=== PATIENT | male | born 1990 | race Caucasian/White ===

== ENCOUNTER → 2016-10-14 | Outpatient (CLI) | payer BC | LOC: BMCIMAGING 12:52 | PROVIDERS: ATTEND Family Medicine | DX: S62.326G Displaced fracture of shaft of fifth metacarpal bone, right hand, subsequent encounter for fracture with delayed healing (principal) ==

== ENCOUNTER 2017-08-23 20:59 | Inpatient (IN) | payer OTHER ==
[2017-08-23] MEDS ORDERED: NS 1,000 ML IV ONE (21:07)
[2017-08-23] MEDS ORDERED: ONDANSETRON 4 MG/2 ML VIAL IVP ONE (21:07)
--- NOTE | 2017-08-23 21:09 | EDPHY ---
H & P Time Seen by Provider: 08/23/17 21:08 HPI/ROS: HPI: This is a 26-year-old male who presents with Chief Complaint: Head injury Location: Head Quality: Injury Duration: Prior to arrival Signs and Symptoms: + LOC, + intoxicated, + bleeding, no radiation, no numbness , no weakness, no tingling, no incontinence, no decreased range of motion, no swelling, no pain Timing: Acute Severity: Moderate Context: Patient is brought in by EMS on limited trauma for head injury while intoxicated. Patient was at [employer] restaurant and [employer] when fellow patrons saw him lying supine next to the bar with obvious intoxication and decreased responsiveness. Bystanders were approximately 40 ft away and did not see what happened. Patient is alert and will answer questions but has slurred speech and admits to drinking "a lot and all day long." He reports that he has a mild posterior and left bahai headache with some posterior neck stiffness. Patient keeps asking what's around his neck and have to reassure him its the cervical collar he has in place. He does not know how he ended up on the ground or how he fell. He does not remember if he hit his head or not. He denies any abdominal pain/shortness of breath/chest pain/weakness. Right-hand dominant. EMS placed cervical collar on scene. Dr. Cortez was at bedside for entire history and physical. Patient does complain of some nausea. He admits he has not eaten today. Modifying Factors: None Comment: ROS: Limited due to intoxication MEDICAL/SURGICAL/SOCIAL HISTORY: Medical history: Anxiety. Surgical history: Denies Social history: Employed. CONSTITUTIONAL: Clearly intoxicated and smells of alcohol, adult white male, awake and alert, no obvious distress HEENT: 4 mm contusion noted over left bahai and normocephalic, PERRL, EOMI. no globe entrapment, no raccoon eyes. no Gastelum signs. Tympanic membranes clear. No tympanic membrane rupture. Nares patent; no septal hematoma. Oropharynx clear, no exudate and moist pink mucosa. No malocclusion. no dental trauma. Airway patent. No lymphadenopathy. NECK: In cervical collar; once removed; supple, no midline tenderness, flexion 45 degrees, extension 45 degrees, right and left lateral flexion 45 degrees. No meningismus. Cardiovascular: Normal S1/S2, regular rate, regular rhythm, without murmur rub or gallop. PULMONARY/CHEST: Symmetrical and nontender. no crepitus. Clear to auscultation bilaterally. Good air movement. No accessory muscle usage. ABDOMEN: Soft, protuberant, generalized tenderness, no ecchymosis, no rebound, no guarding, no peritoneal signs, no masses or organomegaly. No CVAT. PELVIC: no pain with rocking; bilateral hips flexion 125 degrees, extension 30 degrees, with no pain internal rotation and no pain external rotation. BACK: No midline tenderness, no paraspinous spasm, deep tendon reflexes 2/2, no pain with straight leg raise EXTREMITIES: 2/2 pulses, no deformities, no clubbing, no cyanosis or edema. NEUROLOGICAL: no focal neuro deficits. GCS 15. Able to move all 4 extremities upon command. Speech is slurred but understandable. SKIN: Warm and dry, no erythema. no rash. Good capillary refill. Source: Patient, Police, EMS Exam Limitations: No limitations - Medical/Surgical History Hx Asthma: Yes Hx Chronic Respiratory Disease: No Hx Diabetes: No Hx Cardiac Disease: No Hx Renal Disease: No Hx Cirrhosis: No Hx Alcoholism: Yes Hx HIV/AIDS: No Hx Splenectomy or Spleen Trauma: No Other PMH: anxiety - Social History Smoking Status: Current every day smoker Constitutional: Initial Vital Signs Temperature (C) 36.9 C 08/23/17 21:16 Heart Rate 96 08/23/17 21:16 Respiratory Rate 16 08/23/17 21:16 Blood Pressure 143/91 H 08/23/17 21:16 O2 Sat (%) 95 08/23/17 21:16 O2 Delivery Mode Nasal Cannula O2 (L/minute) 2 Allergies/Adverse Reactions: No Known Allergies Allergy (Unverified 02/19/17 17:03) Home Medications: Medication Instructions Recorded Albuterol [Proventil Inhaler HFA 1 - 2 puffs IH Q4H PRN 02/19/17 (*)] Citalopram Hydrobromide [celeXA 10 10 mg PO DAILY 02/19/17 MG] Medical Decision Making - Diagnostics Imaging Results: Imaging Impressions Cervical Spine CT 08/23/17 21:08 Impression: 1. No acute fracture or soft tissue swelling. 2. If the patient has persistent pain or neurologic deficits, consider cervical spine MRI. Findings discussed with Emergency Department physician lab assistant, Trupti Dukes at 08/23/2017 22:06. Lumbar Spine CT 08/23/17 21:28 Impression: 1. No acute lumbar spine fracture. 2. Ascites versus low-attenuation multiloculated mass in the abdomen. Findings discussed with Emergency Department physician lab assistantTrupti at 08/23/2017 22:06. Abdomen CT 08/23/17 22:04 Impression: 1. Large multiloculated thin-walled cystic mass in the left mid abdomen which may originate from the left kidney (as there is no normal left kidney and the abdomen). The findings are not pathognomonic. The differential diagnosis includes atypical forms of unilateral renal cystic disease, multilocular cystic nephroma, localized cystic renal disease, and multicystic dysplastic kidney. Multicystic dysplastic kidney is a pediatric diagnosis and usually undergo atrophy by this patient's age and the other above cystic diseases usually have some component of underlying normal-appearing renal parenchyma (of which this does not). Recommend urological consultation. 2. No acute solid organ or bowel injury. 3. No acute fracture. 4. Subacute anterior right fourth rib fracture. Findings discussed with Emergency Department physician lab assistant, Trupti Dukes at 08/23/2017 23:56. ED Course/Re-evaluation: Head CT scan cervical CT scan ordered based on Storey criteria. Given 1 L normal saline, IV Zofran 2000: ETOH 379; H&H elevated consistent with intoxication and dehydration. 2128: Patient now complaining of low back pain; able to move lower legs without any weakness. CT lumbar scan ordered and given IV morphine 4 mg 2205: Called by Dr. Beckham who advised head CT scan is negative for acute intracranial abnormality, CT cervical scan shows no signs of fracture, CT lumbar or scan does not show any acute fracture/dislocation but there is a mass that tumor like or ascites and radiology's requesting for CT abdomen and pelvis scan to be ordered. C-collar removed. 2210: Friend at bedside who is sober and witnessed what happened. Reports that he went to sit on a bar stool in missed and fell directly on the ground onto his buttocks. He then popped right back up and continue to walk and then hit the wall and slid down the wall and fell onto the floor. 2230: Reassessed patient who is moving around on the bed clearly intoxicated. Keeps having to be redirected. IV Haldol 5 mg given. 2355: Called by radiologist who advised that CT abdomen and pelvis scan shows a 30 cm x 23 cm left mid abdomen mass Large multiloculated thin-walled cystic mass in the left mid abdomen which may originate from the left kidney (as there is no normal left kidney and the abdomen). Subacute anterior right fourth rib fracture. 0000: ED decision to consult, Trauma/General Surgery, Dr. Miranda. Reassessed patient; generalized abdominal tenderness. Reports no difficulty with urination/ abdominal pain/nausea/vomiting over the years. Only complains of low back pain. IV Dilaudid given 0130: End of shift. Signed over to Dr. Mcdonald pending Dr. Miranda consult and final disposition. This patient was seen under the supervision of my secondary supervising physician. I evaluated care for this patient independently. Discussed this patient with Dr. Cortez who did see the patient. Differential Diagnosis: Head injury including but not limited to concussion, skull fracture, intraparenchymal contusion, subarachnoid, subdural and epidural hematoma. - Data Points Laboratory Results: Laboratory Results 08/23/17 21:00 08/23/17 21:00 08/23/17 08/23/17 08/23/17 21:00 21:00 21:00 WBC 10.94 10^3/uL H 10^3/uL (3.80-9.50) RBC 6.62 10^6/uL H 10^6/uL (4.40-6.38) Hgb 20.1 g/dL H* g/dL (13.7-17.5) Hct 60.2 % H* % (40.0-51.0) MCV 90.9 fL fL (81.5-99.8) MCH 30.4 pg pg (27.9-34.1) MCHC 33.4 g/dL g/dL (32.4-36.7) RDW 13.5 % % (11.5-15.2) Plt Count 237 10^3/uL 10^3/uL (150-400) MPV 9.7 fL fL (8.7-11.7) Neut % (Auto) 42.8 % % (39.3-74.2) Lymph % (Auto) 44.0 % % (15.0-45.0) [place] % (Auto) 9.0 % % (4.5-13.0) Eos % (Auto) 2.3 % % (0.6-7.6) Baso % (Auto) 1.0 % % (0.3-1.7) Nucleat RBC Rel Count 0.0 % % (0.0-0.2) Absolute Neuts (auto) 4.68 10^3/uL 10^3/uL (1.70-6.50) Absolute Lymphs (auto) 4.81 10^3/uL H 10^3/uL (1.00-3.00) Absolute Monos (auto) 0.99 10^3/uL H 10^3/uL (0.30-0.80) Absolute Eos (auto) 0.25 10^3/uL 10^3/uL (0.03-0.40) Absolute Basos (auto) 0.11 10^3/uL H 10^3/uL (0.02-0.10) Absolute Nucleated RBC 0.00 10^3/uL 10^3/uL (0-0.01) Immature Gran % 0.9 % % (0.0-1.1) Immature Gran # 0.10 10^3/uL 10^3/uL (0.00-0.10) Sodium 148 mEq/L H mEq/L (135-145) Potassium 4.2 mEq/L mEq/L (3.5-5.2) Chloride 110 mEq/L mEq/L (97-110) Carbon Dioxide 15 mEq/l L mEq/l (22-31) Anion Gap 23 mEq/L H mEq/L (8-16) BUN 13 mg/dL mg/dL (7-23) Creatinine 0.9 mg/dL mg/dL (0.7-1.3) Estimated GFR > 60 Glucose 86 mg/dL mg/dL (70-100) Calcium 9.5 mg/dL mg/dL (8.5-10.4) Total Bilirubin 0.7 mg/dL mg/dL (0.1-1.4) Conjugated Bilirubin 0.5 mg/dL mg/dL (0.0-0.5) Unconjugated Bilirubin 0.2 mg/dL mg/dL (0.0-1.1) AST 36 IU/L IU/L (17-59) ALT 26 IU/L IU/L (21-72) Alkaline Phosphatase 100 IU/L IU/L (38-126) Total Protein 7.6 g/dL g/dL (6.3-8.2) Albumin 4.8 g/dL g/dL (3.5-5.0) Lipase 271 IU/L IU/L (23-300) Specimen Hemolysis 169 Ethyl Alcohol 379 mg/dL H mg/dL (0-10) Medications Given: Discontinued Medications Haloperidol Lactate (Haldol Injection) 2.5 mg IVP EDNOW ONE Stop: 08/23/17 22:08 Last Admin: 08/23/17 22:14 Dose: 2.5 mg Haloperidol Lactate (Haldol Injection) 2.5 mg IVP EDNOW ONE Stop: 08/23/17 22:26 Last Admin: 08/23/17 22:26 Dose: 2.5 mg Hydromorphone HCl (Dilaudid) 1 mg IVP EDNOW ONE Stop: 08/24/17 01:14 Last Admin: 08/24/17 01:16 Dose: 1 mg Sodium Chloride (Ns) 1,000 mls @ 0 mls/hr IV EDNOW ONE; Wide Open PRN Reason: Protocol Stop: 08/23/17 21:08 Last Admin: 08/23/17 21:42 Dose: 1,000 mls Morphine Sulfate (Morphine) 4 mg IVP EDNOW ONE Stop: 08/23/17 21:55 Last Admin: 08/23/17 22:00 Dose: 4 mg Ondansetron HCl (Zofran) 4 mg IVP EDNOW ONE Stop: 08/23/17 21:08 Last Admin: 08/23/17 21:42 Dose: 4 mg Departure - Departure Clinical Impression: Fall involving stool as cause of accidental injury Alcohol intoxication Qualifiers: Complication of substance-induced condition: uncomplicated Qualified Code(s): F10.920 - Alcohol use, unspecified with intoxication, uncomplicated Right rib fracture Qualifiers: Encounter type: subsequent encounter Rib fracture type: single rib Fracture type: closed Fracture healing: with routine healing Qualified Code(s): S22.31XD - Fracture of one rib, right side, subsequent encounter for fracture with routine healing Abdominal mass Qualifiers: Abdominal location: left upper quadrant Qualified Code(s): R19.02 - Left upper quadrant abdominal swelling, mass and lump
[2017-08-23 21:34] LABS: PLATELET COUNT 237 10^3/uL (150-400)
[2017-08-23] MEDS ORDERED: HALOPERIDOL LACT 5 MG/ML INJ IVP ONE ×2 (22:07→22:25)
[2017-08-23] MEDS ORDERED: IOPAMIDOL (ISOVUE 370) 100 ML BTL IV ONE (22:12)
[2017-08-23] MEDS ORDERED: HALOPERIDOL LACT 5 MG/ML INJ ONE (22:20)
[2017-08-24] MEDS ORDERED: HYDROmorphONE/DILAUDID 1 MG/ML INJ ONE (01:12)
[2017-08-24] MEDS ORDERED: HYDROmorphONE/DILAUDID 1 MG/ML INJ IVP ONE (01:13)
[2017-08-24] MEDS ORDERED: NS 1,000 ML IV ONE ×3 (02:23→10:00)
[2017-08-24 08:08] LABS: PLATELET COUNT 275 10^3/uL (150-400)
[2017-08-24] MEDS: LORazepam 2 MG/ML INJ IVP PRN ×2 (08:40→09:02)
[2017-08-24] MEDS: THIAMINE HCL 500 MG in NS 250 ML IV SCH (09:16)
--- NOTE | 2017-08-24 09:33 | CPEKG ---
Heart Rate: 130 RR Interval: 462 P-R Interval: 136 QRSD Interval: 74 QT Interval: 288 QTC Interval: 424 P [place]: 52 QRS [place]: 36 T Wave [place]: 27 EKG Severity - OTHERWISE NORMAL ECG - EKG Impression: SINUS TACHYCARDIA Electronically Signed By: Tino Keith 25-Aug-2017 16:04:30
[2017-08-24] MEDS ORDERED: SODIUM BICARBONATE 50 MEQ/50 ML SYR IVP ONE (10:04)
[2017-08-24] MEDS ORDERED: CALCIUM GLUCONATE 1 GM in D5W 50 ML IV ONE (10:04)
[2017-08-24] MEDS ORDERED: SODIUM BICARBONATE 50 MEQ/50 ML SYR ONE (10:05)
[2017-08-24] MEDS ORDERED: INSULIN REGULAR HUMAN 100 UNIT/ML UNIT IVP ONE ×2 (10:05→14:15)
[2017-08-24] MEDS ORDERED: D50W 25 GM/50 ML SYR IVP ONE (10:05)
[2017-08-24] MEDS ORDERED: SODIUM BICARBONATE 150 MEQ in D5W 1,000 ML IV ONE (10:06)
[2017-08-24] MEDS ORDERED: NS 1,000 ML IV SCH (10:15)
[2017-08-24 10:18] LABS: INR 1.16 (0.83-1.16)
[2017-08-24] MEDS ORDERED: ALTEPLASE 2 MG VIAL IVP PRN (10:21)
--- NOTE | 2017-08-24 10:27 | GHP ---
[f rep st] PREOP HISTORY AND PHYSICAL HISTORY OF PRESENT ILLNESS: The patient is a 26-year-old male who was out at a [employer] and drinking excessively, appeared to pass out and collapse. He was brought to the ER where he had a negative workup for any significant trauma; however, incidentally he was found to have a massive cystic replacement of his left kidney with a mass of over 30 cm in size, which was quite multi- cystic. He is admitted at this time for evaluation of that mass. He is difficult to evaluate at the moment with a blood alcohol of 379. He is also polycythemic with a hematocrit of 60 and a white count of 10,000. Renal function is normal at the time of admission, and his blood alcohol was 379. PAST HISTORY: Reveals asthma, for which he takes some inhalers. He has had no major surgeries or other hospitalizations. He has been in the ER here for panic attacks. REVIEW OF SYSTEMS: Nonrevealing although is limited because of his stupor. He does admit to drinking on a regular basis, and he does smoke. FAMILY HISTORY: Noncontributory. ALLERGIES: None. MEDICATIONS: Albuterol and Celexa. PHYSICAL EXAMINATION: GENERAL: Reveals a stuporous 26-year-old male who is in no acute distress. He does respond briefly to questions, but otherwise is sleeping. He is afebrile. HEAD and NECK: Reveal no evidence of trauma. His pupils are normal. Occlusion is normal. NECK: Supple and nontender. CHEST: Clear. CARDIAC: Reveals a regular rhythm. ABDOMEN: Soft. It is protuberant , has some tenderness in the left side of his abdomen. Pelvis is intact. GENITALIA: Normal. EXTREMITIES: Benign, full pulses. Full range of motion. IMPRESSION: A large multiloculated left renal cystic mass of uncertain etiology and probably has been there for a long time. He has no other evidence of injury or fractures. His head CT scan and cervical CT scan were all negative. PLAN: 1. Admit at this time for further evaluation of his mass, which will need to be resected at some point. 2. He is still severely intoxicated. 3. He has polycythemia which may be secondary to his renal replacement or secondary to dehydration from significant alcohol poisoning. We will plan to have a hematology consultation and internal medicine consultation. /[id number]/MODL MTDD
[2017-08-24] MEDS ORDERED: SODIUM POLY SULF 15 GM/60 ML BOTTLE PO ONE (10:56)
[2017-08-24] MEDS: cefTRIAXone 1 GM in STERILE WATER INJ 10 ML IV SCH (11:50)
--- NOTE | 2017-08-24 12:16 | GCON ---
[f rep st] CONSULTATION DATE OF CONSULTATION: 08/24/2017 HEMATOLOGY CONSULTATION REASON FOR CONSULTATION: Polycythemia. HISTORY OF PRESENT ILLNESS: The patient is a 26-year-old gentleman who was brought to the hospital l ast night by EMS. He was at a restaurant and bar where he fell. Evidently, his fall was not witnessed . He was intoxicated at the time. He was brought to the emergency department by ambulance. A CT of th e head showed no evidence of significant intracranial injury. While in the ER, he complained of abdom inal pain. He had an abdominal CT performed, which revealed a large (30 cm x 23 cm x 10 cm) thin-wall ed cystic mass centered in the left side of the abdomen. It appeared to arise from the left kidney. The patient has been transferred from the general medical floor to the ICU due to increasing abdomina l pain, lactic acidosis, and hyperkalemia. He has been evaluated by General Surgery and may be a candidate for surgical resection of the mass la ter today. When seen this morning, the patient's family members including his mother are at the bedside. His mot her indicates that he was evaluated at [facility] at the age of 15 for polycythemia. The pat katheryn had evidence of polycythemia upon presentation to the hospital last evening, which was corrected with IV fluid administration. She states that the cause of his polycythemia was never determined. He has never had any prior abdominal imaging. PAST MEDICAL HISTORY: Polycythemia as a teen (cause unknown). FAMILY MEDICAL HISTORY: Positive for hemochromatosis in his maternal grandmother and a diagnosis of early kidney disease in his paternal grandmother, cause unknown. SOCIAL HISTORY: The patient lives with his girlfriend in [place]. He admits to history of fairly heav y alcohol use over the past 1 year. He smokes cigarettes daily. REVIEW OF SYSTEMS: Positive for continued abdominal pain. PHYSICAL EXAMINATION: GENERAL: Patient is mildly lethargic, though alert and oriented. He is in no a cute distress. ABDOMEN: Soft. There is a faintly palpable mass in the abdomen with mild diffuse tende rness. Bowel sounds normoactive. No extremity swelling or edema. RADIOLOGIC STUDIES: CT imaging results as outlined above. LABORATORY STUDIES: CBC on admission to the hospital: Hemoglobin 10.9, RBC count 6.62, hemoglobin 20 .1, hematocrit 60.2, platelet count 237,000. CBC from today: White count 23.6, hemoglobin 5.5, hemato crit 46.4, platelet count 275,000. Sodium 141, potassium 6.6, chloride 110, bicarb 8, BUN 16, creatin ine 2.9, calcium 7.8. IMPRESSION: 1. Polycythemia. 2. Large cystic mass arising from left kidney. 3. Renal insufficiency. 4. Metabolic acidosis. 5. Hyperkalemia. 6. Alcohol intoxication. The patient is a 26-year-old gentleman who is admitted to the hospital after suffering a fall felt se condary to alcohol intoxication. Upon presentation to the hospital, he was found to have a fairly lar ge intraabdominal cystic mass apparently arising from the left kidney as well as polycythemia. He has been transferred to the ICU. He has multiple electrolyte abnormalities and evidence of renal i nsufficiency. His condition is being stabilized in the ICU and his hyperkalemia is being treated. I discussed his case with the hospitalist service. The patient will likely be taken to the OR by Gene ral Surgery later today for removal of the large cystic mass as it appears to be contributing to his symptoms currently. I suspect that his polycythemia is directly related to this renal mass. There are case reports of uni lateral renal cystic disease causing erythrocytosis due to high erythropoietin levels within the cyst ic fluid I will send a serum erythropoietin level. If the patient is taken to surgery, I would recommend sendi ng some of his cystic fluid for erythropoietin testing as this is likely the cause of his polycythemi a. We will await the final pathology results from his cyst which would not appear to be malignant by history or imaging. Further recommendations will be made once the above testing has been resulted. The patient and family questions were answered. Case was discussed with the hospitalist service. Total time for the consultation was approximately 60 minutes of which greater than 50% was spent in [facility] and care coordination. /[id number]/MODL
--- NOTE | 2017-08-24 12:58 | ASMTCMCOM ---
CM Note CM Note Notes: 26 year old male watching [employer] passed out and fell off his chair. In the Trauma work-up, he was found to have an abdominal mass. He has a hx of ER visits panic attacks. Family asking for ETOH tx res which will be given to them. Patient's mass being evaluated and may need to be resected. CM to follow. Date Signed: 08/24/2017 12:57 PM Electronically Signed By:Milena Patel LCSW
[2017-08-24] MEDS ORDERED: NOREPINEPHRINE/NS 500 ML IV SCH (13:00)
[2017-08-24] MEDS ORDERED: TRANEXAMIC ACID 1,000 MG in NS 100 ML IV ONE (13:45)
[2017-08-24] MEDS ORDERED: TRANEXAMIC ACID 1,000 MG in NS 500 ML IV ONE (13:45)
[2017-08-24 13:52] LABS: PLATELET COUNT 195 10^3/uL (150-400)
[2017-08-24] MEDS ORDERED: IOPAMIDOL (ISOVUE-300) 100 ML BTL ONE (13:53)
[2017-08-24 14:02] LABS: INR 1.18 (0.83-1.16); PROTIME(PATIENT) 15.2 SEC (12.0-15.0)
[2017-08-24] MEDS ORDERED: fentaNYL 250 MCG/5 ML INJ ONE (14:02)
[2017-08-24] MEDS ORDERED: MIDAZOLAM 2 MG/2 ML VIAL ONE (14:03)
[2017-08-24] MEDS ORDERED: ROCURONIUM 50 MG/5 ML VIAL ONE ×3 (14:03→15:35)
--- NOTE | 2017-08-24 14:05 | PDANEPAE ---
ANE History of Present Illness emergent abdominal bleed for ex lap ANE Past Medical History - Cardiovascular History Hx Hypertension: No Hx Arrhythmias: No Hx Chest Pain: No Hx Coronary Artery / Peripheral Vascular Disease: No Hx CHF / Valvular Disease: No Hx Palpitations: No - Pulmonary History Hx COPD: No Hx Asthma/Reactive Airway Disease: Yes Hx Recent Upper Respiratory Infection: No Hx Oxygen in Use at Home: No Hx Sleep Apnea: No - Endocrine History Hx Diabetes: No Hypothyroid: No Obesity: no - Chronic Pain History Chronic Pain: Yes ANE Review of Systems Review of systems is: negative Review of Systems: - Exercise capacity Exercise capacity: <4 METS ANE Patient History - Allergies Allergies/Adverse Reactions: No Known Allergies Allergy (Unverified 02/19/17 17:03) - Home Medications Home Medications: Albuterol [Proventil Inhaler HFA (*)] 1 - 2 puffs IH Q4H PRN 02/19/17 [Last Taken Unknown] - Smoking Hx Smoking Status: Current every day smoker ANE Labs/Vital Signs - Labs Result Diagrams: 08/24/17 13:35 08/24/17 12:20 - Vital Signs Blood Pressure: 82/55 Heart Rate: 130 Respiratory Rate: 16 O2 Sat (%): 96 Height: 180.34 cm Weight: 95.254 kg ANE Physical Exam - Airway Mallampati Score: Unable to assesss - ASA Status ASA Status: II, E ANE Anesthesia Plan Anesthesia Plan: general endotracheal anesthesia Lines/Monitors: arterial line Specialized Airway: video laryngoscope
[2017-08-24] MEDS ORDERED: INSULIN REGULAR HUMAN 100 UNIT in NS 100 ML IV ONE (14:30)
[2017-08-24] MEDS ORDERED: PHENYLEPHRINE 10 MG/ML SDV ONE (14:47)
--- NOTE | 2017-08-24 14:57 | PDRADPN ---
Radiology Procedure Note Date of Procedure: 08/24/17 Radiologist: Evy Nation Pre-op Diagnosis: LT RENAL BLEED Post-op Diagnosis: SAME Indication: HYPOTENSION Procedure: LT RENAL ARTERIOGRAM WITH EMBOLIZATION Finding(s): PSEUDOANEURYSM OFF OF LT RENAL BRANCH, EMBOLIZED Inf/Abcess present in the surg proc area at time of surgery?: No Complications: NO ACTIVE BLEEDING SEEN POST EMBOLIZATION
[2017-08-24] MEDS ORDERED: HYDROmorphONE/DILAUDID 2 MG/ML INJ ONE (15:11)
[2017-08-24] MEDS ORDERED: BUPIVACAINE/EPI 0.5% 30 ML SDV ONE (15:38)
[2017-08-24] MEDS ORDERED: fentaNYL 100 MCG/2 ML INJ ONE (16:09)
[2017-08-24] MEDS ORDERED: ALBUTEROL 3 ML DEYVIAL IH PRN (16:51)
[2017-08-24] MEDS ORDERED: ACETAMINOPHEN 500 MG TAB PO PRN (16:51)
[2017-08-24] MEDS ORDERED: PROMETHAZINE HCL 25 MG/ML INJ IVP PRN (16:51)
[2017-08-24] MEDS ORDERED: METOCLOPRAMIDE 10 MG/2 ML VIAL IVP PRN (16:51)
[2017-08-24] MEDS ORDERED: NS 500 ML IV PRN (16:51)
[2017-08-24] MEDS ORDERED: fentaNYL 100 MCG/2 ML INJ IVP PRN (16:51)
[2017-08-24] MEDS ORDERED: ONDANSETRON 4 MG/2 ML VIAL IVP PRN (16:51)
[2017-08-24] MEDS ORDERED: LABETALOL HCL 5 MG/ML 20 ML MDV IVP PRN (16:51)
[2017-08-24] MEDS ORDERED: HYDROmorphONE/DILAUDID 1 MG/ML INJ IVP PRN (16:51)
[2017-08-24] MEDS ORDERED: NALOXONE HCL 0.4 MG/ML INJ IVP PRN (16:51)
[2017-08-24] MEDS ORDERED: OXYCODONE/APAP 5/325 TAB PO PRN (16:51)
[2017-08-24] MEDS ORDERED: HYDROCODONE/APAP 5/325 TAB PO PRN (16:51)
--- NOTE | 2017-08-24 16:51 | POSTANESTH ---
Post Anesthetic Evaluation Cardiovascular Status: Normal, Stable, Other, See Comment (tachycardic 2/2 pain) Respiratory Status: Normal, Stable Level of Consciousness/Mental Status: Can Participate in Eval Pain Control: Inadeq, Add Tx Required Nausea/Vomiting Control: Adequate, Prn Tx Ordered Complications Possibly Related to Anesthesia: None Noted
--- NOTE | 2017-08-24 17:16 | POSTOPPROG ---
Post Op Note Date of Operation: 08/24/17 Surgeon: Sabas Miranda Hazard Mitigation Officer: ANTONIO PARADA Anesthesiologist: MEHDI Anesthesia: GET(General Endotracheal) Pre-op Diagnosis: HEMORRHAGIC POLYCYSTIC LEFT KIDNEY AND SHOCK Post-op Diagnosis: SAME Indication: EXSANGUINATION Procedure: LAPAROTOMY WITH LEFT RADICAL NEPHRECTOMY AFTER IR RENAL VEIN EMBOLIZATION Findings: MASSIVE MULTILOCULATED POLYCYSTIC KIDNEY WITH SIGNIFICANT BLOOD IN THE KIDN Inf/Abcess present in the surg proc area at time of surgery?: No Depth: Organ Space EBL: 50-100 Complications: NONE Specimen(s): LEFT KIDNEY
[2017-08-24] MEDS: D5W 1/2 NS W/ 20 KCl/L 1,000 ML IV SCH (17:46)
--- NOTE | 2017-08-24 19:49 | GCON ---
[f rep st] CONSULTATION INTERNAL MEDICINE CONSULTATION DATE OF CONSULTATION: 08/24/2017 REASON FOR CONSULTATION: Medical opinion regarding hypotension and hyperkalemia. HISTORY: The patient is a 26-year-old male, admitted to Dr. Miranda's service last night after falling off a bar stool while intoxicated after the [place]. He was initially stable when admitted to th e floor. However, became much more unstable this morning, developing hypotension, tachycardia, and d ramatically worsening laboratory studies, including critical hyperkalemia with EKG changes, and a marsha pping H and H. A stat team was called, and he was transferred emergently to the ICU. He continued t o complain of severe abdominal pain and low back pain. He did not have this abdominal pain prior to his fall yesterday. I saw this patient multiple times throughout the day today with frequent checks of laboratory studies, which were demonstrating a dramatically lower H and H. [facility], consistent with his chronic polycythemia, but this morning he was down to 46, and only 4 ho urs later he had dropped to 31. With his abdominal pain, I was highly suspicious that he had an intr aabdominal bleed. A stat CT scan of the abdomen and pelvis was obtained, which showed massive hemorr jayshree, and I called Dr. Miranda, and recommended emergent surgery. Dr. Miranda, given the large mass in h is abdomen and difficulties with controlling bleeding behind it, the patient first went to Interventi onal Radiology and had embolization, and was found to have a bleeding renal artery, which was success fully embolized. He subsequently went to surgery and had the mass removed. He was given the massive transfusion protocol, and received 5 units of blood, as well as FFP and platelets. He is doing bett er post surgery, and now returning to the ICU shortly. PAST MEDICAL HISTORY: 1. Asthma. 2. Anxiety and panic disorder. 3. Polycythemia diagnosed as a child of unclear etiology. MEDICATIONS: Please see computer record for full detailed list. ALLERGIES: No known drug allergies. SOCIAL HISTORY: Occasionally smokes. Currently drinking somewhat heavily to help manage his chronic anxiety and panic attacks, admitting to 6 drinks per day. He occasionally smokes marijuana, but is looking for a new job, and so has quit this because he does not want to show up as a positive drug sc reen and ruin his employment opportunities. 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 He lives with his girlfriend in [facility]. He has a very supportive family at bedside. REVIEW OF SYSTEMS: Complete review of systems obtained. Review of systems negative regarding consti tutional, HEENT, GI, pulmonary, cardiovascular, , hematology, skin, muscular, endocrine, psych exce pt for positives as in HPI. FAMILY HISTORY: Grandmother with hemochromatosis. Other grandmother with chronic kidney disease of unclear etiology. PHYSICAL EXAMINATION: GENERAL: Well-developed, well-nourished male, in no acute distress. He is ve ry pale appearing, lethargic, but awakens to normal mental status with questioning. Looks very uncom fortable. VITAL SIGNS: Temp 36.6, pulse 130, blood pressure 82/55, saturating 96% 4 L. EYES: Norm al conjunctivae. Pupils equal, react to light. ENT: Normal ears and nose. Hearing intact. Normal teeth. Oropharynx dry. NECK: Trachea midline. No thyromegaly. CHEST: Normal respiratory effort . LUNGS: Clear to auscultation bilaterally. CARDIOVASCULAR: Tachycardic. No murmur. No lower ex tremity edema. ABDOMEN: Soft, very distended, painful to any palpation. No hepatosplenomegaly. Gi salena the severity of pain with palpation, I did not do deep palpation to try to feel the mass, which i s known to exist on CAT scan. SKIN: Very pale. No rash or ulcer. Warm, dry, intact. A little cla mmy. MUSCULOSKELETAL: No cyanosis, clubbing. Strength 5/5 upper and lower extremities. NEUROLOGIC : Cranial nerves intact. Normal sensation intact. PSYCH: Alert and oriented x3. Normal mood and affect. Normal judgment and insight. Normal memory. LABORATORY: White count 23.62. Hematocrit as above started at 60, then down to 46, and then down to 31 over a matter of hours. Platelets 275, sodium 141, potassium 6.6, chloride 110, bicarb 8, BUN 16 , creatinine 2.9, glucose 148. LFTs are normal. ABG shows a pH of 7.3, pCO2 of 31, PO2 of 104. Alc ohol level on presentation 379. EKG viewed by me. My personal interpretation is sinus tachycardia. Peaked T-waves. CT scan of the abdomen and pelvis shows a cystic mass and a subacute right 4th rib fracture. Repeat abdominal ultrasound and CT shows massive intraabdominal hemorrhage, possible rupture of the mass. I personally reviewed the ultrasound with Dr. Beckham. ASSESSMENT/PLAN: 1. Massive intraabdominal hemorrhage, status post renal artery embolization. Continue to follow justice medrano H and H. He has already received 5 units of blood. Now that the bleeding has been controlled, an ticipate his H and H will stabilize. 2. Hypovolemic shock. Anticipate blood pressure will improve now that the bleeding is being control led. 3. Cystic kidney mass. This has just been resected by Dr. Miranda. Await pathology. 4. Hyperkalemia. He has good urine output. So, I am hopeful that it will improve with medical ther apy. Nephrology is aware of the patient, but there was no indication for acute dialysis. He receive d multiple rounds of calcium, insulin, D50 and bicarbonate. In surgery Anesthesia did a repeat K thr ough his art line. It was down to 5.2. I await formal repeat laboratory studies now. He has not re ceived oral Kayexalate, as he has been n.p.o., but if creatinine does not improve could consider a re ctal dose. 5. Acute renal failure. This is due to his hypovolemic shock. We will follow serially, but anticip ate this will improve. 6. Alcohol use. I do not think withdrawal is a massive component. I think his current presentation is more of a bleeding issue. We will continue to monitor. 7. Acute blood loss anemia. He received a massive transfusion protocol, and we will continue to fol low. 8. Polycythemia as a child. I suspect this is secondary to epo production from this mass on his kid ruiz. Now that this has been resected, anticipate this will no longer be an issue for him. Thank you very much for this consultation. Hospitalist Medicine will continue to follow. Critical c are time spent throughout the period of this day is 90 minutes. /[id number]/MODL
--- NOTE | 2017-08-24 20:14 | PDMN ---
Medical Necessity Medical necessity: Patient meets inpatient criteria per physician note and MCG Vascular Disease GRG (massive intraabdominal hemorrhage s/p fall while intoxicated; hypovolemic shock, cystic kidney mass/hx polycythemia since childhood; ARF/hyperkalemia; to surgery emergently for nephrectomy s/p IR renal artery embolization; massive transfusions of PRBC's and FFP; anticipated LOS > 2 midnights for ongoing serial H&H's, close monitoring postop, ongoing eval and treatment). .
--- NOTE | 2017-08-24 20:34 | GCON ---
[f rep st] CONSULTATION CRITICAL CARE CONSULTATION DATE OF CONSULTATION: 08/24/2017 REASON FOR CONSULTATION: Acute bleed into an intra-abdominal mass, probably related to the kidney. HISTORY: The patient is a 26-year-old, who was admitted last night to the Trauma Service. He was in toxicated, fell from a stool. He had relatively minor head trauma. He had been drinking "all day lo ng," at [employer] related parties. Hematocrit was found to be 60 on admission. He was afebrile wit h normal vital signs. Workup in the Emergency Department showed a blood alcohol of 379. CT scan of the head was negative, as was CT scan of the spine. The latter showed an intra-abdominal mass. CT o f the abdomen was then done, which a large cystic mass possibly originating from the left kidney. Th e latter was essentially not present. This was multicystic and does appear to be benign. This morni ng the patient developed abdominal pain. This was associated with lactic acidosis and hyperkalemia. Hematocrit was 60 on admission, dropped to 46 this morning, and 4 hours later dropped to 31. Follow up CT scan of the abdomen shows an acute bleed into his cystic mass. The mass transfusion protocol i s being initiated, and he is emergently being taken to Interventional Radiology, and from there to th e operating room. Hyperkalemia was initially treated, with followup potassium down from 6.6 to 6.2. BUN and creatinine on admission were normal. Creatinine has jumped to 2.9. PAST MEDICAL HISTORY,: Alcoholism, asthma, taking albuterol on an as-needed basis. PHYSICAL EXAMINATION: GENERAL: Reveals a pale gentleman who is somnolent but is arousable and respo nds appropriately. VITAL SIGNS: Blood pressure is 82/55, heart rate 130 with sinus tachycardia on t he monitor, respiratory rate is 26, he is afebrile. HEENT: Remarkable for nasal cannula oxygen bein g in place. Mucous membranes are dry. Sclerae appeared are pale. CHEST: Clear bilaterally. Breat h sounds are diminished at the bases. ABDOMEN: Tender and distended. Full examination was not perf ormed. The patient indicates pain starting in the left flank area. Bowel sounds are absent. EXTREM ITIES: Unremarkable for edema, cords, or tenderness. SKIN: Pale. NEUROLOGIC: Intact. CT scan of the abdomen is as outlined above, with a large cystic mass. With acute hemorrhage. Hemat ocrit is 31, down from 46 four hours earlier. White blood cell count 23,000. Platelets are normal a t 275,000. PT and PTT are normal. Arterial blood gas shows a pH of 7.30, pCO2 31, and pO2 of 104 on 4 to 5 L of oxygen. CO2 of 16 with a base excess of 10.5. Latest potassium is 6.2 with a sodium 13 4, creatinine 1.9 down from 2.9, and a CO2 of 15. Calcium is 6.6, iron 19, saturation 10. Ferritin is pending. ASSESSMENT: 1. Acute blood loss anemia and shock. The patient is bleeding into an intra-abdominal cystic mass. Possibly the bleeding was initiated when he fell at the bar last night. He is being taken emergentl y to Interventional Radiology, and from there to the operating room. Dr. Awan and Dr. Miranda are both involved. He is being typed and crossed, and the mass transfusion protocol is being initiated. Prog nosis is guarded as Surgery feels laparotomy and resection of his mass, control of bleeding, may be d ifficult. 2. Acute alcohol intoxication. The patient's blood alcohol was significantly elevated on admission. He is on the CIWA protocol. However, there are no signs of withdrawal at this time, and his massiv e bleed is taking precedence. This will be readdressed postoperatively. There is a history of chron ic alcohol abuse as well. 3. Hyperkalemia. This is associated with acute renal insufficiency. He is making good urine now. However, creatinine jumped initially to 2.9, now down to 1.9. His acute bleed is likely contributing to a potassium source. He has initially been treated for hyperkalemia. Renal consultation has been obtained, and they will see him postoperatively. Dialysis could be considered if needed. Potassium will be followed closely. 4. Metabolic acidosis. The patient does have elevated lactate at approximately 5. He is hypotensiv e. He is being covered empirically with antibiotics, but likely this represents lactic acidosis from his massive bleed. Bicarbonate has been given. Further bicarb may be needed. He is being empirica lly covered with ceftriaxone and metronidazole. PLAN AND RECOMMENDATIONS: The patient has being taken to the OR. He will likely come back on the ve ntilator. Blood gas and full laboratory will be re-obtained postop. Further plans and recommendations will be made based on his status postoperatively. /[id number]/MODL
[2017-08-24] MEDS: ONDANSETRON 4 MG/2 ML VIAL IVP PRN (21:00)
[2017-08-24] MEDS ORDERED: ONDANSETRON 4 MG/2 ML VIAL ONE (21:07)
[2017-08-24] MEDS: HYDROmorphONE/DILAUDID 1 MG/ML INJ IVP PRN ×2 (21:20→23:19)
[2017-08-25] MEDS: HYDROmorphONE/DILAUDID 1 MG/ML INJ IVP PRN ×7 (02:03→20:30)
[2017-08-25] MEDS: ONDANSETRON 4 MG/2 ML VIAL IVP PRN ×2 (04:24→20:27)
[2017-08-25 04:48] LABS: PLATELET COUNT 119 10^3/uL (150-400)
[2017-08-25 04:57] LABS: INR 1.14 (0.83-1.16); PROTIME(PATIENT) 14.8 SEC (12.0-15.0)
[2017-08-25] MEDS: D5W 1/2 NS W/ 20 KCl/L 1,000 ML IV SCH ×2 (05:30→18:27)
[2017-08-25] MEDS: cefTRIAXone 1 GM in STERILE WATER INJ 10 ML IV SCH (07:51)
[2017-08-25] MEDS: THIAMINE HCL 500 MG in NS 250 ML IV SCH (07:51)
[2017-08-25] MEDS: LORazepam 2 MG/ML INJ IVP PRN ×3 (07:51→22:12)
[2017-08-25] MEDS ORDERED: LIDOCAINE 1% 300 MG/30 ML SDV ONE (09:07)
--- NOTE | 2017-08-25 11:43 | SOAPPROG ---
SOAP Progress Note Assessment/Plan: Assessment/Plan: 26 Y M admitted s/p fall and elevated EtOH, polycythemia, found to have large left polycystic renal mass with hemorrhagic shock. S/p IR renal arteriogram and embolization followed by radial L nephrectomy. POD#1. Appreciate intake clinician, hematology, and internal medicine input and care. Seen earlier this am with Dr. Miranda. Overall doing much better. Stable. H&H stable. Cr improved. Ileus. NG output high, but taking in ice chips and sips water. Clamp trial soon. Continue lopez today. Likely d/c tomorrow. CXR today. S: pain controlled. somnolent but arousable. O: see above. mmm, no jaundice no wob Wounds well dressed, change tomorrow abd soft, +BS per RN. 08/25/17 11:46 Objective: Vital Signs Temp Pulse Resp BP Pulse Ox 37.3 C 100 10 L 143/94 H 98 08/25/17 10:00 08/25/17 10:00 08/25/17 10:00 08/25/17 10:00 08/25/17 10:00 Laboratory Results 08/25/17 04:30 08/25/17 04:30 08/24/17 08/25/17 08/26/17 05:59 05:59 05:59 Intake Total 5781 Output Total 200 3100 Balance -200 2681 PT 14.8 SEC (12.0-15.0) 08/25/17 04:30 INR 1.14 (0.83-1.16) 08/25/17 04:30 ICD10 Worksheet Patient Problems: Problems Problem Status Onset Abdominal mass Acute Alcohol intoxication Acute Fall involving stool as cause of accidental injury Acute Right rib fracture Acute
[2017-08-25] MEDS: FAMOTIDINE 20 MG/NACL 50 ML IV SCH ×2 (12:32→20:30)
--- NOTE | 2017-08-25 13:41 | PDINTPN ---
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 Taken emergently to the operating room 08/24 after IR embolization of the left renal artery. Cystic kidney removed. Acute blood-loss anemia: Resolved. Status post 5 U of packed red blood cells. Stable postoperatively. Large left cystic kidney with acute bleed into this. Status post embolization and removal yesterday. Hyperkalemia: Resolved. Secondary in large part to the bleed and hemolysis. Lactic acidosis: Resolved. ETOH: Acute on chronic. CIWA 8 today. On protocols. Withdrawal may become worse? GI prophylaxis: Famotidine to start today. DVT prophylaxis: SCDs. Prophylactic Lovenox once okay with surgery. Plan: Continue care and monitoring in the intensive care unit, bed rest for now. Continue pain management. Follow CIWA, treat per protocols. Follow hematocrit, laboratory. Continue NG to suction until bowel sounds return, passing gas. 25 min of critical care time spent directly with the patient. Discussed with the patient's family, surgery, hospitalist, nursing, and the ICU multi disciplinary team. Subjective: Sleeping, arousable, responsive. Significantly decreased abdominal pain today Objective: Vital Signs Temp Pulse Resp BP Pulse Ox 37.6 C 108 H 11 L 140/77 H 96 08/25/17 12:00 08/25/17 12:30 08/25/17 12:30 08/25/17 12:30 08/25/17 12:30 Laboratory Results 08/25/17 04:30 08/25/17 04:30 08/24/17 08/25/17 08/26/17 05:59 05:59 05:59 Intake Total 5781 Output Total 200 3100 400 Balance -200 2681 -400 PT 14.8 SEC (12.0-15.0) 08/25/17 04:30 INR 1.14 (0.83-1.16) 08/25/17 04:30 Laboratory Tests 08/25/17 08/25/17 08/25/17 04:30 04:30 04:30 PT 14.8 INR 1.14 VBG Lactic Acid 0.6 L D Calcium 7.3 L Phosphorus 3.1 Magnesium 1.8 Total Bilirubin 1.1 AST 27 ALT 37 Albumin 2.3 L Lipase 20 L CXR: Essentially clear. Some minor atelectasis at the left base Physical Exam - Physical Exam General Appearance: obese, other (Sleeping, arouses, appears comfortable) EENT: PERRL/EOMI, other (NG tube in place to suction. Nasal cannula in place at 2 L) Neck: normal inspection (No obvious jugular venous distension. Large neck.) Respiratory: lungs clear (Anteriorly), decreased breath sounds (At bases), No rales, No rhonchi (No consolidation) Cardiac/Chest: tachycardia (Sinus, low 100s), systolic murmur Abdomen: soft, distended (Mild), other (Large midline incision comma dressed), No normal bowel sounds (Absent), No non-tender (Tenderness present, markedly better) Male Genitalia: other (Sargent catheter in place. Good urine output) Skin: warm/dry, pallor Extremities: No pedal edema Neuro/Psych: no motor/sensory deficits, No cognition abnormalities ICD10 Worksheet Patient Problems: Problems Problem Status Onset Abdominal mass Acute Alcohol intoxication Acute Fall involving stool as cause of accidental injury Acute Right rib fracture Acute
[2017-08-25] MEDS ORDERED: ORAL BALANCE GEL TUBE PO PRN (13:54)
--- NOTE | 2017-08-25 18:28 | HOSPPROG ---
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 -await path * Polycythemia -suspect secondary due to EPO secretion from tumor * Post-op ileus -NGT/NPO * Mild Etoh withdrawal -ativan prn * Anxiety/panic disorder * ARF with hyperkalemia due to shock -resolved -outpatient nephrology follow-up for unilateral kidney Subjective: better. wants to drink Objective: Vital Signs Temp Pulse Resp BP Pulse Ox 38.3 C 115 H 12 126/68 H 92 08/25/17 18:00 08/25/17 18:00 08/25/17 18:00 08/25/17 18:00 08/25/17 18:00 Laboratory Results 08/25/17 16:35 08/25/17 04:30 08/24/17 08/25/17 08/26/17 05:59 05:59 05:59 Intake Total 5781 1292 Output Total 200 3100 1975 Balance -200 2681 -683 PT 14.8 SEC (12.0-15.0) 08/25/17 04:30 INR 1.14 (0.83-1.16) 08/25/17 04:30 IV dilaudid for pain d/w Dr. Malcolm regarding ICU plan CXR - atelectasis - Physical Exam Constitutional: no apparent distress, appears nourished, not in pain Cardiovascular: regular rate and rhythym, no murmur, rub, or gallop Respiratory: no respiratory distress, no rales or rhonchi, clear to auscultation Gastrointestinal: tenderness, distension, No normoactive bowel sounds, No guarding, No rebound Skin: no rashes or abrasions, no fluctuance, no induration Neurologic: AAOx3, sensation intact bilaterally Psychiatric: interacting appropriately, not anxious, not encephalopathic, thought process linear ICD10 Worksheet Patient Problems: Problems Problem Status Onset Abdominal mass Acute Alcohol intoxication Acute Fall involving stool as cause of accidental injury Acute Right rib fracture Acute
[2017-08-25] MEDS ORDERED: ACETAMINOPHEN 325 MG TAB PO PRN (20:51)
[2017-08-25] MEDS ORDERED: ACETAMINOPHEN 650 MG SUPP PR PRN (20:51)
[2017-08-26] MEDS: D5W 1/2 NS W/ 20 KCl/L 1,000 ML IV SCH (00:23)
[2017-08-26] MEDS: HYDROmorphONE/DILAUDID 1 MG/ML INJ IVP PRN ×3 (00:30→09:15)
[2017-08-26 05:49] LABS: PLATELET COUNT 100 10^3/uL (150-400)
[2017-08-26] MEDS ORDERED: PROTOCOL K PHOSPHATE 1 DOSE IV PRN (06:19)
[2017-08-26] MEDS: FAMOTIDINE 20 MG/NACL 50 ML IV SCH ×2 (08:44→22:05)
[2017-08-26] MEDS: THIAMINE HCL 500 MG in NS 250 ML IV SCH (08:45)
[2017-08-26] MEDS ORDERED: NALOXONE HCL 0.4 MG/ML INJ IVP PRN (09:54)
[2017-08-26] MEDS ORDERED: PROTOCOL MAGNESIUM 1 DOSE IV PRN (10:28)
[2017-08-26] MEDS ORDERED: ALBUTEROL 3 ML DEYVIAL IH PRN (10:29)
--- NOTE | 2017-08-26 12:05 | SOAPPROG ---
SOAP Progress Note Assessment/Plan: Assessment: 1) Polycythemia (secondary) 2) Cystic mass Left kidney (s/p Left nephrectomy) 4) Traumatic hemorrhage involving #2 5) ETOH abuse Plan: Remains in ICU following nephrectomy for hemorrhage into large Left kidney cyst. Await final pathology of renal cyst. Suspect a benign etiology. I spoke with pathology. It looks like a chronically nonfunctioning kidney. His serum erythropoetin level was elevated, supporting that his polycythemia was likely due to excess EPO production from his Left renal cyst. Will plan on rechecking an EPO level as an outpatient once things have stabilized. Case d/w pathology, Dr. Washington, and patient's parents. 08/26/17 11:52 08/26/17 11:53 Subjective: Remains in ICU following emergent surgery for large volume hemorrhage into large Left renal cyst. Objective: Vital Signs Temp Pulse Resp BP Pulse Ox 37.0 C 107 H 15 135/76 H 93 08/26/17 10:00 08/26/17 10:00 08/26/17 10:00 08/26/17 10:00 08/26/17 10:00 Laboratory Results 08/26/17 05:35 08/26/17 05:35 08/25/17 08/26/17 08/27/17 05:59 05:59 05:59 Intake Total 5781 2409 Output Total 3100 2810 Balance 2681 -401 PT 14.8 SEC (12.0-15.0) 08/25/17 04:30 INR 1.14 (0.83-1.16) 08/25/17 04:30 - Time Spent With Patient Time Spent With Patient: 25 minutes Physical Exam - Physical Exam General Appearance: alert, no apparent distress, other (Lethargic.) Cardiac/Chest: regular rate, rhythm Abdomen: soft Neuro/Psych: other (Lethargic, but answeres simple questions appropriately.) ICD10 Worksheet Patient Problems: Problems Problem Status Onset Abdominal mass Acute Alcohol intoxication Acute Fall involving stool as cause of accidental injury Acute Right rib fracture Acute
--- NOTE | 2017-08-26 12:42 | PDINTPN ---
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 Taken emergently to the operating room 08/24 after IR embolization of the left renal artery. Cystic kidney removed. Acute blood-loss anemia: Resolved. Status post 5 U of packed red blood cells. Stable postoperatively. Hematocrit 29. Large left cystic kidney with acute bleed into this. Status post embolization and removal 08/26. Postoperative ileus: Improving slowly. Hyperkalemia: Resolved. Secondary in large part to the bleed and hemolysis. Lactic acidosis: Resolved. ETOH: Acute on chronic. CIWA 0 today. On protocols. GI prophylaxis: Famotidine. DVT prophylaxis: SCDs. Prophylactic Lovenox once okay with surgery. Plan: Continue care and monitoring in the intensive care unit. Can change to SDU status. Increase mobilization as tolerated Continue pain management. Follow CIWA, treat per protocols. Follow hematocrit, laboratory. Continue NG to suction until bowel sounds return, passing gas. 20 min of critical care time spent directly with the patient. Discussed with the patient's family, surgery, hospitalist, nursing, and the ICU multi disciplinary team. Subjective: Up walking in the halls. Abdominal discomfort persists. Objective: Vital Signs Temp Pulse Resp BP Pulse Ox 37.4 C 104 H 15 129/80 H 100 08/26/17 12:00 08/26/17 12:00 08/26/17 12:00 08/26/17 12:00 08/26/17 12:00 Laboratory Results 08/26/17 05:35 08/26/17 05:35 08/25/17 08/26/17 08/27/17 05:59 05:59 05:59 Intake Total 5781 2409 Output Total 3100 2810 Balance 2681 -401 PT 14.8 SEC (12.0-15.0) 08/25/17 04:30 INR 1.14 (0.83-1.16) 08/25/17 04:30 Laboratory Tests 08/26/17 05:35 Phosphorus 2.3 L Magnesium 1.7 Physical Exam - Physical Exam General Appearance: alert, obese, other (Up walking in the yancey) EENT: PERRL/EOMI, other (Nasal cannula at 2 L) Neck: normal inspection Respiratory: lungs clear, decreased breath sounds (At bases) Cardiac/Chest: tachycardia (Low 100s) Abdomen: soft, distended, No normal bowel sounds (Decreased, few bowel sounds present.), No non-tender Male Genitalia: other (Sargent catheter in place, good urine output) Skin: warm/dry, pallor Neuro/Psych: no motor/sensory deficits, No cognition abnormalities ICD10 Worksheet Patient Problems: Problems Problem Status Onset Alcohol intoxication Acute Fall involving stool as cause of accidental injury Acute Right rib fracture Acute Abdominal mass Acute
[2017-08-26] MEDS: HYDROmorphONE/DILAUDID 6 MG/30 ML PCA IV PRN (12:57)
--- NOTE | 2017-08-26 14:02 | ASMTCMCOM ---
CM Note CM Note Notes: I went into patient's room to offer resources on chemical dependency/behavioral health. Patient stated that he "had no interest in stopping drinking alcohol." His grandmother was in the room, but she did not say anything. We have resources available if he changes his mind. PT has been ordered but has not seen patient yet. As of now, discharge is home independent with support of family and girlfriend. Date Signed: 08/26/2017 02:01 PM Electronically Signed By:Lily Dodd RN
--- NOTE | 2017-08-26 15:39 | SOAPPROG ---
SOAP Progress Note Assessment/Plan: Assessment/Plan: 26 Y M admitted s/p fall and elevated EtOH, polycythemia, found to have large left polycystic renal mass with hemorrhagic shock. S/p IR renal arteriogram and embolization followed by radial L nephrectomy. POD#2. Seen earlier today and just d/w'ed RN again now. Rosetta d/c'ed. Void trial. Possible straight cath soon. NGT clamped. Much of output before this morning was water intake. Check residual. Possibly d/c <100cc. 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 H&H stable. (Slight drop, insignificant) Cr improved. Wounds intact. removed dressing. Appreciate machine greaser, hematology, and internal medicine input and care. S: pain controlled. passing gas. denies N/V. O: alert, nad mmm, no jaundice, ng in place no wob abd soft, inc cdi c hoang, no erythema. 08/26/17 15:35 Objective: Vital Signs Temp Pulse Resp BP Pulse Ox 37.4 C 104 H 15 129/80 H 100 08/26/17 12:00 08/26/17 12:00 08/26/17 12:00 08/26/17 12:00 08/26/17 12:00 Laboratory Results 08/26/17 05:35 08/26/17 05:35 08/25/17 08/26/17 08/27/17 05:59 05:59 05:59 Intake Total 5781 2409 Output Total 3100 5090 679 Balance 8314 -413 -344 PT 14.8 SEC (12.0-15.0) 08/25/17 04:30 INR 1.14 (0.83-1.16) 08/25/17 04:30 ICD10 Worksheet Patient Problems: Problems Problem Status Onset Abdominal mass Acute Alcohol intoxication Acute Fall involving stool as cause of accidental injury Acute Right rib fracture Acute
--- NOTE | 2017-08-26 16:57 | HOSPPROG ---
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 -await path -pain control - IV dilaudid cue worker * Polycythemia -suspect secondary due to EPO secretion from tumor * Post-op ileus -NGT/NPO * Mild Etoh withdrawal -ativan prn * Anxiety/panic disorder * ARF with hyperkalemia due to shock -resolved -outpatient nephrology follow-up for unilateral kidney Subjective: Stil with intermittent nausea, a lot of pain requiring IV dilaudid 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 ASSOCIATE, CIWA 0 Objective: Vital Signs Temp Pulse Resp BP Pulse Ox 36.8 C 100 14 135/77 H 97 08/26/17 16:00 08/26/17 16:00 08/26/17 16:00 08/26/17 16:00 08/26/17 16:00 Laboratory Results 08/26/17 05:35 08/26/17 05:35 08/25/17 08/26/17 08/27/17 05:59 05:59 05:59 Intake Total 5781 2409 Output Total 3100 2810 675 Balance 2681 -401 -675 PT 14.8 SEC (12.0-15.0) 08/25/17 04:30 INR 1.14 (0.83-1.16) 08/25/17 04:30 - Physical Exam Constitutional: no apparent distress, appears nourished, not in pain Cardiovascular: regular rate and rhythym, no murmur, rub, or gallop Respiratory: no respiratory distress, no rales or rhonchi, clear to auscultation Gastrointestinal: soft, non-tender abdomen, no palpable masses, distension, No normoactive bowel sounds Skin: no rashes or abrasions, no fluctuance, no induration Neurologic: AAOx3, sensation intact bilaterally Psychiatric: interacting appropriately, not anxious, not encephalopathic, thought process linear ICD10 Worksheet Patient Problems: Problems Problem Status Onset Abdominal mass Acute Alcohol intoxication Acute Fall involving stool as cause of accidental injury Acute Right rib fracture Acute
[2017-08-26] MEDS: ONDANSETRON 4 MG/2 ML VIAL IVP PRN (18:35)
[2017-08-27 05:56] LABS: PLATELET COUNT 108 10^3/uL (150-400)
[2017-08-27] MEDS: FAMOTIDINE 20 MG/NACL 50 ML IV SCH ×2 (09:04→20:43)
[2017-08-27] MEDS: THIAMINE HCL 100 MG TAB PO SCH (09:05)
--- NOTE | 2017-08-27 09:17 | SOAPPROG ---
SOAP Progress Note Assessment/Plan: Assessment: 26 Y M admitted s/p fall and elevated EtOH, polycythemia, found to have large left polycystic renal mass with hemorrhagic shock. S/p IR renal arteriogram and embolization followed by radial L nephrectomy. POD#2. S: Pt continues to improve. Was up out of bed 4-5 times yesterday with PT. Still not getting up to go to the bathroom, but using urinal. Reports having an appetite today. Passing some gas. No BM yet. Pain is well controlled with LOG PREPARER. O: Afebrile. Vital signs stable NAD Abd: soft, nontender, incision CDI, +BS mmm, no jaundice Hct dropped from 29 to 24 from yesterday to today. Plan: Will check Hct again at 1200. If still dropping, will give 1 unit of PRBC. Advance diet to clear liquids. 08/27/17 09:10 Objective: Vital Signs Temp Pulse Resp BP Pulse Ox 36.7 C 71 12 129/60 H 100 08/27/17 08:00 08/27/17 08:00 08/27/17 08:00 08/27/17 08:00 08/27/17 08:00 Laboratory Results 08/27/17 05:25 08/27/17 05:25 08/26/17 08/27/17 08/28/17 05:59 05:59 05:59 Intake Total 4651 3309 Output Total 2049 6190 Balance -401 -423 PT 14.8 SEC (12.0-15.0) 08/25/17 04:30 INR 1.14 (0.83-1.16) 08/25/17 04:30 ICD10 Worksheet Patient Problems: Problems Problem Status Onset Abdominal mass Acute Alcohol intoxication Acute Fall involving stool as cause of accidental injury Acute Right rib fracture Acute
[2017-08-27] MEDS ORDERED: MAGNESIUM SULF 1 GM/DEXTROSE 100 ML IV ONE (09:22)
[2017-08-27] MEDS ORDERED: ZOLPIDEM TARTRATE 5 MG TAB PO PRN (10:38)
--- NOTE | 2017-08-27 12:16 | SOAPPROG ---
SOAP Progress Note Assessment/Plan: Assessment: 1) Polycythemia (secondary) 2) Cystic mass Left kidney (s/p Left nephrectomy)--benign 4) Traumatic hemorrhage involving #2 5) ETOH abuse Plan: Remains in ICU following nephrectomy for hemorrhage into large Left kidney cyst. Final pathology confirms a benign etiology. It looks like a chronically nonfunctioning kidney. I think that eventual urology evaluation would be a good idea to try to better determine why this had happened to his left kidney. His serum erythropoetin level was elevated, supporting that his polycythemia was likely due to excess EPO production from his Left renal cyst. Sending cyst fluid from Left kidney cyst for EPO testing was not possible due to the amount of hemorrhage. Will plan on rechecking an EPO level as an outpatient once things have stabilized. Our service will arrange for an outpatient visit after discharge. We will follow him in the hospital intermittently at this point. Case d/w ICU nursing and patient. Subjective: Denies pain. Lethargic, though oriented. Objective: Vital Signs Temp Pulse Resp BP Pulse Ox 36.7 C 75 13 123/68 H 99 08/27/17 11:44 08/27/17 11:44 08/27/17 11:44 08/27/17 11:44 08/27/17 11:44 Laboratory Results 08/27/17 11:45 08/27/17 05:25 08/26/17 08/27/17 08/28/17 05:59 05:59 05:59 Intake Total 2409 2827 Output Total 2810 3250 Balance -401 -423 PT 14.8 SEC (12.0-15.0) 08/25/17 04:30 INR 1.14 (0.83-1.16) 08/25/17 04:30 - Time Spent With Patient Time Spent With Patient: 15 minutes Physical Exam - Physical Exam General Appearance: other (Lethargic. NAD. Answers questions appropriately. Oriented.) ICD10 Worksheet Patient Problems: Problems Problem Status Onset Abdominal mass Acute Alcohol intoxication Acute Fall involving stool as cause of accidental injury Acute Right rib fracture Acute
[2017-08-27] MEDS: HYDROmorphONE/DILAUDID 6 MG/30 ML PCA IV PRN (14:28)
--- NOTE | 2017-08-27 15:39 | ASMTCMCOM ---
CM Note CM Note Notes: PT/OT are both recommending home independent. No further needs. CM available if d/c needs arise. Date Signed: 08/27/2017 03:39 PM Electronically Signed By:Rebekah Madison LCSW
--- NOTE | 2017-08-27 15:44 | PDINTPN ---
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 Taken emergently to the operating room 08/24 after IR embolization of the left renal artery. Cystic kidney removed. Acute blood-loss anemia: Resolved. Status post 5 U of packed red blood cells. Stable postoperatively. Hematocrit 25, has drifted down slightly secondary to equilibration. No evidence of active or ongoing bleeding.. Large left cystic kidney with acute bleed into this. Status post embolization and removal 08/26. Postoperative ileus: Improving slowly. Hyperkalemia: Resolved. Secondary in large part to the bleed and hemolysis. Lactic acidosis: Resolved. ETOH: Acute on chronic. CIWA 0, can D/c. GI prophylaxis: Famotidine. DVT prophylaxis: SCDs. Prophylactic Lovenox once okay with surgery. Plan: Continue care. Can transfer to a medical-surgical bed. Increase mobilization. Continue pain management comma decreases tolerate. D/c CIWA. Follow hematocrit, laboratory. Advance diet as tolerated. 25 min of critical care time spent directly with the patient. Discussed with the patient's family, surgery, hospitalist, nursing, and the ICU multi disciplinary team. Subjective: Doing better. Abdominal pain significantly better. Wants juice. Objective: Vital Signs Temp Pulse Resp BP Pulse Ox 36.7 C 91 15 119/63 99 08/27/17 11:44 08/27/17 15:37 08/27/17 15:37 08/27/17 15:37 08/27/17 15:37 Laboratory Results 08/27/17 11:45 08/27/17 05:25 08/26/17 08/27/17 08/28/17 05:59 05:59 05:59 Intake Total 2409 2827 Output Total 2810 3250 Balance -401 -423 PT 14.8 SEC (12.0-15.0) 08/25/17 04:30 INR 1.14 (0.83-1.16) 08/25/17 04:30 Laboratory Tests 08/27/17 05:25 Calcium 7.6 L Phosphorus 2.7 Magnesium 1.8 Physical Exam - Physical Exam General Appearance: alert, no apparent distress, obese EENT: PERRL/EOMI, other (Nasal cannula in place at 1-2 L) Neck: normal inspection Respiratory: lungs clear, decreased breath sounds (At bases) Cardiac/Chest: regular rate, rhythm Abdomen: normal bowel sounds (Active bowel sounds), soft (Much softer), distended (Much less distended), No non-tender (Decreased tenderness) Skin: warm/dry, pallor Extremities: No pedal edema Neuro/Psych: no motor/sensory deficits, alert, No cognition abnormalities ICD10 Worksheet Patient Problems: Problems Problem Status Onset Alcohol intoxication Acute Fall involving stool as cause of accidental injury Acute Right rib fracture Acute Abdominal mass Acute
[2017-08-27] MEDS ORDERED: LORazepam 1 MG TAB PO PRN (15:58)
--- NOTE | 2017-08-27 17:09 | HOSPPROG ---
Hospitalist Progress Note Assessment/Plan: * Hemorrhagic shock - BP now stable * Intra-abd bleed s/p renal artery embolization -suspect traumatic due to fall * ABL anemia -falling a little - follow closely * Cystic mass of kidney s/p left nephrectomy -path - benign - dilated kidney due to chronic hydronephrosis -consider outpatient urology consult - ?VUR * Polycythemia -suspect secondary due to EPO secretion from abnormal kidney * Post-op ileus -now clear liquids * Mild Etoh withdrawal -resolved * Anxiety/panic disorder * ARF with hyperkalemia due to shock -resolved -outpatient nephrology follow-up for unilateral kidney Subjective: now taking clears Objective: Vital Signs Temp Pulse Resp BP Pulse Ox 37.1 C 88 16 133/78 H 98 08/27/17 16:50 08/27/17 16:50 08/27/17 16:50 08/27/17 16:50 08/27/17 16:50 Laboratory Results 08/27/17 11:45 08/27/17 05:25 08/26/17 08/27/17 08/28/17 05:59 05:59 05:59 Intake Total 2409 2827 1372 Output Total 2810 3250 1200 Balance -401 -423 172 PT 14.8 SEC (12.0-15.0) 08/25/17 04:30 INR 1.14 (0.83-1.16) 08/25/17 04:30 IV dilaudid DENTAL FINANCIAL COORDINATOR for pain control path - chronic hydronephrosis of kidney d/w Dr. Malcolm - Physical Exam Constitutional: no apparent distress, appears nourished, not in pain Cardiovascular: regular rate and rhythym, no murmur, rub, or gallop Respiratory: no respiratory distress, no rales or rhonchi, clear to auscultation Gastrointestinal: normoactive bowel sounds, soft, non-tender abdomen, no palpable masses Skin: no rashes or abrasions, no fluctuance, no induration Neurologic: AAOx3, sensation intact bilaterally Psychiatric: interacting appropriately, not anxious, not encephalopathic, thought process linear ICD10 Worksheet Patient Problems: Problems Problem Status Onset Abdominal mass Acute Alcohol intoxication Acute Fall involving stool as cause of accidental injury Acute Right rib fracture Acute
[2017-08-27] MEDS: D5W 1/2 NS W/ 20 KCl/L 1,000 ML IV SCH (18:04)
[2017-08-28] MEDS: D5W 1/2 NS W/ 20 KCl/L 1,000 ML IV SCH (04:21)
[2017-08-28 05:11] LABS: PLATELET COUNT 153 10^3/uL (150-400)
[2017-08-28] MEDS: FAMOTIDINE 20 MG/NACL 50 ML IV SCH (07:46)
[2017-08-28] MEDS: THIAMINE HCL 100 MG TAB PO SCH (07:48)
--- NOTE | 2017-08-28 09:50 | SOAPPROG ---
SOAP Progress Note Assessment/Plan: Assessment: 26 Y M admitted s/p fall and elevated EtOH, polycythemia, found to have large left polycystic renal mass with hemorrhagic shock. S/p IR renal arteriogram and embolization followed by radial L nephrectomy. POD#2. S: Pt continues to improve, but still weak and tired. Moved from ICU to [facility]. Getting up to urinate. Tolerated clear liquids well yesterday. Passing some gas. No BM yet. Pain is well controlled with INFRASTRUCTURE DESIGN ENGINEER. Would like to advance diet to solids today. O: Afebrile. Vital signs stable NAD Abd: soft, nontender, incision CDI, +BS mmm, no jaundice H&H stable. Plan: Continue to monitor. Advance diet as tolerated. 08/28/17 09:47 Objective: Vital Signs Temp Pulse Resp BP Pulse Ox 37.1 C 84 14 143/75 H 91 L 08/28/17 09:45 08/28/17 09:45 08/28/17 09:45 08/28/17 09:45 08/28/17 09:45 Laboratory Results 08/28/17 04:46 08/28/17 04:46 08/27/17 08/28/17 08/29/17 05:59 05:59 05:59 Intake Total 2827 3027 Output Total 3250 1200 700 Balance -423 1827 -700 PT 14.8 SEC (12.0-15.0) 08/25/17 04:30 INR 1.14 (0.83-1.16) 08/25/17 04:30 ICD10 Worksheet Patient Problems: Problems Problem Status Onset Abdominal mass Acute Alcohol intoxication Acute Fall involving stool as cause of accidental injury Acute Right rib fracture Acute
[2017-08-28] MEDS: ONDANSETRON 4 MG/2 ML VIAL IVP PRN (12:08)
--- NOTE | 2017-08-28 13:48 | HOSPPROG ---
Hospitalist Progress Note Assessment/Plan: DIAGNOSES: -acute hypovolemic shock and post hemorrhagic anemia -acute hemorrhage into cystic renal mass, posttraumatic -large cystic renal mass now status post nephrectomy -polycythemia likely due to renal mass disease -acute severe alcohol intoxication and encephalopathy -acute renal failure -hypokalemia -history of asthma overall he continues slow but good improvement no particular signs of new complication now PLANS: -continue routine post op care -continue ambulation -continue to observe for any sign of infection or other new issues -counseling today re etoh, and need to take preventive measures for his kidney in future SUBJECTIVE: some pain but improving no BM yet but eating some solid food no sob no fever sxs emptying bladder ok OBJECTIVE Vitals reviewed: Currently all stable without fever Trim Installer, my review: sable without fevers Exam: alert oriented skin warm dry color ok resps not labored lungs clear BSs heart regular abd soft nondistended nontender, bowel sounds present, dressing clean dry no sign of bleed or drainage limbs warm, no edema iv site ok Laboratory data: Stable CBC and chemistry at this time, remains severely anemic with hemoglobin 8 Objective: Vital Signs Temp Pulse Resp BP Pulse Ox 37.1 C 96 16 135/82 H 91 L 08/28/17 11:36 08/28/17 11:36 08/28/17 11:36 08/28/17 11:36 08/28/17 11:36 Laboratory Results 08/28/17 04:46 08/28/17 04:46 08/27/17 08/28/17 08/29/17 06:59 06:59 06:59 Intake Total 2827 3027 Output Total 3250 1200 700 Balance -423 1827 -700 PT 14.8 SEC (12.0-15.0) 08/25/17 04:30 INR 1.14 (0.83-1.16) 08/25/17 04:30 ICD10 Worksheet Patient Problems: Problems Problem Status Onset Abdominal mass Acute Alcohol intoxication Acute Fall involving stool as cause of accidental injury Acute Right rib fracture Acute
[2017-08-28] MEDS: HYDROmorphONE/DILAUDID 1 MG/ML INJ IVP PRN (14:06)
[2017-08-28] MEDS: oxyCODONE IR 5 MG TAB PO PRN ×3 (17:10→21:50)
[2017-08-28] MEDS: FAMOTIDINE 20 MG TAB PO SCH (20:02)
[2017-08-29] MEDS: oxyCODONE IR 5 MG TAB PO PRN ×5 (05:11→17:49)
[2017-08-29] MEDS ORDERED: BISACODYL 10 MG SUPP PR PRN (06:39)
[2017-08-29] MEDS ORDERED: POLYETHYLENE GLYCOL 3350 17 GM PKT PO PRN (06:39)
[2017-08-29] MEDS ORDERED: MAGNESIUM HYDROXIDE 30 ML UDCUP PO PRN (06:39)
[2017-08-29] MEDS ORDERED: traMADol 50 MG TAB PO PRN (08:48)
[2017-08-29] MEDS: SENNOSIDES/DOCUSATE SODIUM TAB PO SCH ×2 (09:03→20:02)
[2017-08-29] MEDS: FAMOTIDINE 20 MG TAB PO SCH ×2 (09:03→20:02)
[2017-08-29] MEDS: THIAMINE HCL 100 MG TAB PO SCH (09:03)
--- NOTE | 2017-08-29 09:50 | SOAPPROG ---
SOAP Progress Note Assessment/Plan: Assessment/Plan: 26 Y M admitted s/p fall and elevated EtOH, polycythemia, found to have large left polycystic renal mass with hemorrhagic shock. S/p IR renal arteriogram and embolization followed by radial L nephrectomy. Pain controlled with PO pain meds - add ultram Tolerating regular diet Passing flatus - add bowel protocol Ambulating independently Voiding spontaneously May replace R IJ access with PIV for patient comfort Labs improving - H/H stable, recheck phos in am. Dispo: likely home in 1-[address] Sol S: feeling well this am. tolerating diet. pain controlled but oxy makes him feel "out of it" O: laying in bed, comfortable, NAD, family at bedside No increased WOB +BS, abd soft, nt. incision CDI, hoang intact Objective: Vital Signs Temp Pulse Resp BP Pulse Ox 37.6 C 82 18 126/65 H 97 08/29/17 08:00 08/29/17 08:00 08/29/17 08:00 08/29/17 08:00 08/29/17 08:00 Laboratory Results 08/28/17 04:46 08/28/17 04:46 08/28/17 08/29/17 08/30/17 05:59 05:59 05:59 Intake Total 3027 1400 Output Total 1200 1400 Balance 1827 0 PT 14.8 SEC (12.0-15.0) 08/25/17 04:30 INR 1.14 (0.83-1.16) 08/25/17 04:30 ICD10 Worksheet Patient Problems: Problems Problem Status Onset Abdominal mass Acute Alcohol intoxication Acute Fall involving stool as cause of accidental injury Acute Right rib fracture Acute
--- NOTE | 2017-08-29 11:20 | HOSPPROG ---
Hospitalist Progress Note Assessment/Plan: 26 Y M admitted s/p fall and elevated EtOH, polycythemia, found to have large left polycystic renal mass with hemorrhagic shock. S/p IR renal arteriogram and embolization followed by radial L nephrectomy. Today is my first encounter with the patient, chart reviewed. *acute hypovolemic shock and post hemorrhagic anemia resolved still anemic but stable *acute hemorrhage into cystic renal mass stable *large cystic renal mass now s/p nephrectomy *Polycythemia *acuter renal failure resolved *hypokalemia resolved *acute severe alcohol intoxication w associated encephalopathy resolved, alert and oriented *asthma hx lungs clear *constipation bowel protocol *Plan: dc tele, has been in sinus, suspect he will be dc soon, dc iv narcotics. I Subjective: Brian is feeling well, has no complaints. Abd pain is well managed. Objective: Vital Signs Temp Pulse Resp BP Pulse Ox 37.6 C 82 18 126/65 H 97 08/29/17 08:00 08/29/17 08:00 08/29/17 08:00 08/29/17 08:00 08/29/17 08:00 Laboratory Results 08/28/17 04:46 08/28/17 04:46 08/28/17 08/29/17 08/30/17 05:59 05:59 05:59 Intake Total 3027 1400 Output Total 1200 1400 Balance 1827 0 PT 14.8 SEC (12.0-15.0) 08/25/17 04:30 INR 1.14 (0.83-1.16) 08/25/17 04:30 - Physical Exam Constitutional: no apparent distress, appears nourished, not in pain Eyes: PERRL Ears, Nose, Mouth, Throat: hearing normal Cardiovascular: regular rate and rhythym Respiratory: no respiratory distress Gastrointestinal: tenderness, No normoactive bowel sounds (hypoactive) Skin: warm Musculoskeletal: full muscle strength Neurologic: AAOx3 Psychiatric: interacting appropriately ICD10 Worksheet Patient Problems: Problems Problem Status Onset Abdominal mass Acute Alcohol intoxication Acute Fall involving stool as cause of accidental injury Acute Right rib fracture Acute
--- NOTE | 2017-08-29 11:59 | ASMTCMCOM ---
CM Note CM Note Notes: Reviewed chart regarding discharge plan, pt's progress. Pt is s/p laparotomy w/ left radical nephrectomy for a cystic mass. Pt is a chronic drinker. CM previously met w/ pt to provide alcohol resources; per CM notes, pt refused. PT/OT previously cleared pt. Continue to anticipate pt will discharge home independent when medically stable. CM will cont to follow for any potential needs. Current Discharge Plan: Independent Date Signed: 08/29/2017 11:58 AM Electronically Signed By:Jessica Lentz RN
[2017-08-29] MEDS: LACTULOSE 20 GM/30 ML UDCUP PO PRN ×2 (17:49→18:47)
[2017-08-30] MEDS: oxyCODONE IR 5 MG TAB PO PRN ×3 (00:02→11:21)
[2017-08-30 08:09] VITALS: RESP 16
[2017-08-30] MEDS: FAMOTIDINE 20 MG TAB PO SCH (08:18)
[2017-08-30] MEDS: SENNOSIDES/DOCUSATE SODIUM TAB PO SCH (08:19)
[2017-08-30] MEDS: THIAMINE HCL 100 MG TAB PO SCH (08:19)
--- NOTE | 2017-08-30 08:36 | HOSPPROG ---
Hospitalist Progress Note Assessment/Plan: #Acute hemorrhagic shock: due to renal artery bleed; s/p IR embolization #Acute blood anemia: s/p massive transfusion protocol #Etoh use: mild w/d here. Resolved #Lactic acidosis: resolved with fluids #Renal mass: s/p nephrectomy. Benign #ARF: resolved #Toxic encephalopathy: due to Etoh, resolved Ileus: eating #Acute pain: sched APAP, PRN oxy #Disp: DC today Subjective: walking the unit. Tramadol does not help with pain. Objective: Vital Signs Temp Pulse Resp BP Pulse Ox 36.8 C 88 16 146/84 H 95 08/30/17 08:00 08/30/17 08:00 08/30/17 08:00 08/30/17 08:00 08/30/17 08:00 Microbiology 08/24/17 10:00 Blood Culture - Final Blood 08/24/17 10:00 Blood Culture - Final Blood Laboratory Results 08/28/17 04:46 08/28/17 04:46 08/29/17 08/30/17 08/31/17 05:59 05:59 05:59 Intake Total 1400 670 Output Total 1400 Balance 0 670 PT 14.8 SEC (12.0-15.0) 08/25/17 04:30 INR 1.14 (0.83-1.16) 08/25/17 04:30 - Physical Exam Constitutional: other (pale, NAD) Eyes: PERRL Ears, Nose, Mouth, Throat: moist mucous membranes Cardiovascular: regular rate and rhythym Respiratory: no respiratory distress, no rales or rhonchi Gastrointestinal: normoactive bowel sounds, other (insicion stapled, CDI, healing well) Genitourinary: no bladder fullness Skin: warm Musculoskeletal: full muscle strength Neurologic: AAOx3, CN II-XII Intact Psychiatric: interacting appropriately, flat affect ICD10 Worksheet Patient Problems: Problems Problem Status Onset Abdominal mass Acute Alcohol intoxication Acute Fall involving stool as cause of accidental injury Acute Right rib fracture Acute
--- NOTE | 2017-08-30 08:57 | GOP ---
[f rep st] OPERATIVE REPORT DATE OF OPERATION: SURGEON: Sabas Miranda MD MOUNTAIN BIKE GUIDE: Dr. Mojica and Dr. Kohler. ANESTHESIOLOGIST: Dr. Lisa. PREOPERATIVE DIAGNOSIS: Massive hemorrhage into a polycystic kidney. POSTOPERATIVE DIAGNOSIS: Massive hemorrhage into a polycystic kidney. PROCEDURE PERFORMED: Laparotomy and radical left nephrectomy. FINDINGS: The patient was found to have a massively dilated polycystic left kidney containing a fair amount of recent hemorrhage. ESTIMATED BLOOD LOSS: Blood loss from procedure was less than 100 cc. DESCRIPTION OF PROCEDURE: Patient was taken to the operating room where he received satisfactory gen eral endotracheal anesthesia by Dr. Lisa. He was placed in supine position, prepped and draped i n usual sterile fashion. He had already gone to Interventional Radiology for coil embolization of hi s left renal artery. A large midline abdominal incision was made and carried through the linea alba. The abdomen was carefully entered. The only thing visible in the abdomen was a multi-loculated cys tic kidney. This was carefully mobilized around the edges, and then multiple cysts were opened and s uctioned clear, some with just clear fluid and some with old blood, until the tumor could be collapse d down so that we could work down to the hilum. The left renal vein was identified. It was isolated with a vascular clamp along with the renal artery which had already been embolized. Once that vascu lar input was controlled, the tumor could be further mobilized. The left ureter was identified and d ivided with the Harmonic scalpel and the remaining cysts were evacuated until we were down to just th e hilar vessels. The hilum was divided with a vascular stapler and the specimen was removed. The wo und was copiously irrigated. Hemostasis was fully obtained. There was no evidence of any other michael r problems, and no harm or compromise to the celiac or superior mesenteric arteries or the splenic ve in. Abdomen was then closed in layers with a running #1 PDS suture for the linea alba, reinforced pe riodically with #1 Vicryl interrupted sutures. The skin was closed with skin hoang. The wound was infiltrated with 0.5% Marcaine. He tolerated the procedure well. COMPLICATIONS: There were no complications. /[id number]/MODL
--- NOTE | 2017-08-30 10:39 | SOAPPROG ---
SOAP Progress Note Assessment/Plan: Assessment/Plan: 26 Y M admitted s/p fall and elevated EtOH, polycythemia, found to have large left polycystic renal mass with hemorrhagic shock. S/p IR renal arteriogram and embolization followed by radial L nephrectomy. Pain controlled with PO pain meds - Ultram did not help significantly. Scheduled tylenol and PRN oxy IR Tolerating regular diet + BM, bowel protocol Ambulating independently Voiding spontaneously May replace R IJ access with PIV for patient comfort Phos WNL Dispo: DC home. F/u [address] Miranda for wound check/staple removal. Avoid heavy pushing, lifting, pulling. May shower. Call with worsening symptoms/ questions/concerns. Discussed c Dr. Melara S: feeling well this am. tolerating diet. had BM. walking halls without difficulty. O: sitting upright in chair, comfortable, NAD, sister at bedside No increased WOB +BS, abd soft, nt. incision CDI, hoang intact Objective: Vital Signs Temp Pulse Resp BP Pulse Ox 36.8 C 88 16 146/84 H 95 08/30/17 08:00 08/30/17 08:00 08/30/17 08:00 08/30/17 08:00 08/30/17 08:00 Microbiology 08/24/17 10:00 Blood Culture - Final Blood 08/24/17 10:00 Blood Culture - Final Blood Laboratory Results 08/28/17 04:46 08/28/17 04:46 08/29/17 08/30/17 08/31/17 05:59 05:59 05:59 Intake Total 1400 670 Output Total 1400 Balance 0 670 PT 14.8 SEC (12.0-15.0) 08/25/17 04:30 INR 1.14 (0.83-1.16) 08/25/17 04:30 ICD10 Worksheet Patient Problems: Problems Problem Status Onset Abdominal mass Acute Alcohol intoxication Acute Fall involving stool as cause of accidental injury Acute Right rib fracture Acute
[2017-08-30 11:25] VITALS: TEMP 98.5
[2017-08-30 12:19] VITALS: BP 129/70; PULSE 82; O2SAT 100
--- NOTE | 2017-08-30 12:47 | GDS ---
[f rep st] DISCHARGE SUMMARY DISCHARGE DIAGNOSES: 1. Hemorrhagic shock. 2. Chronic polycythemia. 3. Acute blood loss anemia. 4. Tachycardia. 5. Acute kidney injury. 6. Cystic mass of left kidney, status post nephrectomy. 7. Postop ileus. 8. Mild alcohol withdrawal. 9. Anxiety/panic disorder. 10. Intraabdominal bleed, status post renal artery embolization. 11. Arthritis. PROCEDURES: 1. Interventional Radiology embolization of left renal artery. 2. Left nephrectomy with benign mass. HISTORY OF PRESENT ILLNESS: A 26-year-old male, history of anxiety/panic disorder, chronic polycythe mansi and asthma, who was admitted to Dr. Miranda' service on 08/23/2017, after falling off a bar stool w hile intoxicated after the [place]. He was initially stable on the floor, but then developed hypo tension, tachycardia, and dramatic drop in H and H. CT showed massive hemorrhage. The patient under went left renal artery embolization by IR, and was subsequently found to have a renal mass and underw ent nephrectomy by Dr. Miranda. He underwent massive transfusion protocol. HOSPITAL COURSE BY PROBLEM: 1. Hemorrhagic shock: Secondary to intraabdominal bleed. He is status post renal artery embolizati on. H and H are stable. This was traumatic secondary to fall. 2. Acute blood loss anemia again secondary to above. 3. Hemorrhagic shock: He was hypotensive secondary to rapid blood loss. His pressures are now stab le. 4. Cystic mass of kidney: Status post left nephrectomy. Pathology was benign showing dilated kidne y due to chronic hydronephrosis. 5. Polycythemia: Likely secondary to erythropoietin secretion from his abnormal kidney. Should hav e an outpatient fuel cell assembler. 6. Postop ileus, tolerating clears. 7. Postop pain: Scheduling Tylenol 3 times a day, and providing a few oxycodone. 8. Mild alcohol withdrawal. This resolved. 9. Anxiety/panic disorder, stable. 10. Acute renal failure with hyperkalemia: This was secondary to shock. Both have resolved. 11. Toxic encephalopathy secondary to acute intoxication. This resolved. DISPOSITION: Patient is stable for discharge home. FOLLOW UP: 1. Dr. Miranda with surgery in 1 week. The patient may shower but not bathe in tub. 2. Primary care physician at [facility]. Would recommend outpatient referral for Nephrology and Urology . /[id number]/MODL
[2017-08-30] MEDS ORDERED: ACETAMINOPHEN 500 MG TAB PO SCH (16:00)
== END 2017-08-30 14:37 | disposition home or self-care (01) | DRG 659 ==
LOC: EDUNIT# → F1N 08-24 03:22 → F2N 08-24 09:58 → F3E 08-27 16:45
PROVIDERS: ADMIT Surgery; ATTEND Internal Medicine
PROC: B44 Imaging, Lower Arteries, Ultrasonography (ICD-10-PCS; 2017-08-24)
PROC: 04LA3DZ Occlusion of Left Renal Artery with Intraluminal Device, Percutaneous Approach (ICD-10-PCS; 2017-08-24)
PROC: B4171ZZ Fluoroscopy of Left Renal Artery using Low Osmolar Contrast (ICD-10-PCS; 2017-08-24)
PROC: 30233R1 Transfusion of Nonautologous Platelets into Peripheral Vein, Percutaneous Approach (ICD-10-PCS; 2017-08-24)
PROC: 30233N1 Transfusion of Nonautologous Red Blood Cells into Peripheral Vein, Percutaneous Approach (ICD-10-PCS; 2017-08-24)
PROC: 05HN33Z Insertion of Infusion Device into Left Internal Jugular Vein, Percutaneous Approach (ICD-10-PCS; 2017-08-24)
PROC: HZ2ZZZZ Detoxification Services for Substance Abuse Treatment (ICD-10-PCS; 2017-08-24)
PROC: 0TT10ZZ Resection of Left Kidney, Open Approach (ICD-10-PCS; principal; 2017-08-24 14:15)
DX: N28.1 Cyst of kidney, acquired (principal); R57.1 Hypovolemic shock; D75.1 Secondary polycythemia; S09.90XA Unspecified injury of head, initial encounter; D62 Acute posthemorrhagic anemia; N17.9 Acute kidney failure, unspecified; F10.221 Alcohol dependence with intoxication delirium; F10.239 Alcohol dependence with withdrawal, unspecified; G31.2 Degeneration of nervous system due to alcohol; S22.31XA Fracture of one rib, right side, initial encounter for closed fracture; K91.89 Other postprocedural complications and disorders of digestive system; R00.0 Tachycardia, unspecified; E87.2 Acidosis; I95.9 Hypotension, unspecified; Y90.8 Blood alcohol level of 240 mg/100 ml or more; E87.5 Hyperkalemia; F17.210 Nicotine dependence, cigarettes, uncomplicated; W08.XXXA Fall from other furniture, initial encounter; Y92.511 Restaurant or cafe as the place of occurrence of the external cause; J45.909 Unspecified asthma, uncomplicated; F41.1 Generalized anxiety disorder; Z79.51 Long term (current) use of inhaled steroids
CPT/HCPCS: 82668-90; 96374; 97110-GP; 97116-GP; 97161-GP; 97166-GO; 97535-GO; C1769; C1894; C2628; G0480; J0610; J0696; J1170; J1630; J1644; J1815; J2060; J2250; J2270; J2370; J2405; J3010; J3411; J3475; P9016; P9017; P9035; Q9967

== ENCOUNTER 2017-10-19 18:41 | Emergency (ER) | payer OTHER ==
--- NOTE | 2017-10-19 19:12 | EDPHY ---
H & P Time Seen by Provider: 10/19/17 18:57 HPI/ROS: CHIEF COMPLAINT: Numbness in hands and feet HISTORY OF PRESENT ILLNESS: 27-year-old male with a history of anxiety presents with numbness in his hands and feet. He drank an assistive amount of alcohol last evening, which often causes panic attacks. He felt fine until this afternoon, when he developed tingling in his hands and feet. Similar to prior panic attacks. He has a history of multiple prior panic attacks, sometimes associated with tingling. However, he became concerned because he also developed to twitching in his abdomen. He had a nephrectomy in August 2017 after a fall and severe intra-abdominal hemorrhage. REVIEW OF SYSTEMS: Constitutional: No fever, no chills Eyes: No visual changes ENT: No sore throat Respiratory: No cough, no shortness of breath Cardiac: No chest pain Gastrointestinal: No nausea, no vomiting, no abdominal pain Genitourinary: No hematuria, no dysuria Musculoskeletal: No leg pain or swelling Skin: No rash Neurological: No headache, no weakness Psychiatric: No depression Past Medical/Surgical History: Nephrectomy Anxiety Social History: Recent alcohol use Smoking Status: Former smoker Physical Exam: General Appearance: Alert, pleasant Eyes: Pupils equal and round, no conjunctival pallor ENT, Mouth: Mucous membranes moist Neck: Normal inspection Respiratory: Lungs are clear to auscultation Cardiovascular: Regular rate and rhythm Gastrointestinal: Abdomen is soft and nontender Neurological: Alert, oriented x3, cranial nerves II through XII intact, motor 5 /5, sensory intact to light touch Skin: Warm and dry Extremities: Normal inspection Vascular: Radial pulses 2 + Psychiatric: Anxious Constitutional: Initial Vital Signs Temperature (C) 36.8 C 10/19/17 18:44 Heart Rate 76 10/19/17 18:44 Respiratory Rate 20 10/19/17 18:44 Blood Pressure 169/85 H 10/19/17 18:44 O2 Sat (%) 99 10/19/17 18:44 O2 Delivery Mode Room Air Allergies/Adverse Reactions: No Known Allergies Allergy (Verified 10/19/17 18:43) Home Medications: Medication Instructions Recorded Albuterol [Proventil Inhaler HFA 1 - 2 puffs IH Q4H PRN 02/19/17 (*)] Qvar 10/19/17 Medical Decision Making - Diagnostics EKG Interpretation: EKG interpreted by me reveals normal sinus rhythm, rate 72, J point elevation. ED Course/Re-evaluation: This pt presents with extremity paresthesias and twitching. Neurologic exam is normal. Labs/EKG normal; no evidence of electrolyte abnormality, anemia or cardiac etiology. Sx c/w anxiety/panic attack. Reassured pt, felt much better on discharge. f/u with PCP. Differential Diagnosis: includes though not limited to hypokalemia, hypoglycemia, CVA/TIA, dysrhythmia - Data Points Laboratory Results: Laboratory Results 10/19/17 19:20 10/19/17 19:20 Departure - Departure Disposition: Home, Routine, Self-Care Clinical Impression: Panic attack, Paresthesia Condition: Good Instructions: Paresthesia (ED), Panic Attack (ED) Additional Instructions: Avoid alcohol. Referrals: DAHLIA JORDAN [Other] - 1 day, if not improved
--- NOTE | 2017-10-19 19:27 | CPEKG ---
Heart Rate: 72 RR Interval: 833 P-R Interval: 160 QRSD Interval: 86 QT Interval: 388 QTC Interval: 425 P Cary: 22 QRS Cary: 13 T Wave Cary: 52 EKG Severity - NORMAL ECG - EKG Impression: SINUS RHYTHM EKG Impression: ST ELEV, PROBABLE NORMAL EARLY REPOL PATTERN Electronically Signed By: Trinidad Martins 19-Oct-2017 20:30:49
[2017-10-19 19:28] LABS: PLATELET COUNT 235 10^3/uL (150-400)
[2017-10-19 20:11] VITALS: BP 119/73
== END 2017-10-19 20:11 | disposition home or self-care (01) ==
DX: F41.0 Panic disorder [episodic paroxysmal anxiety] (principal)

== ENCOUNTER 2018-04-17 05:27 | Emergency (ER) | payer OTHER ==
--- NOTE | 2018-04-17 05:44 | EDPHY ---
H & P Stated Complaint: panic attack and haven't slept in 5 day Source: Patient - Personal History Current Tetanus/Diphtheria Vaccine: Unsure Current Tetanus Diphtheria and Acellular Pertussis (TDAP): Unsure - Medical/Surgical History Hx Asthma: Yes Hx Chronic Respiratory Disease: No Hx Diabetes: No Hx Cardiac Disease: No Hx Renal Disease: No Hx Cirrhosis: No Hx Alcoholism: Yes Hx HIV/AIDS: No Hx Splenectomy or Spleen Trauma: No Other PMH: anxiety, nephrectomy, asthma, left kidney removed - Social History Smoking Status: Former smoker Time Seen by Provider: 04/17/18 05:44 HPI/ROS: HPI CHIEF COMPLAINT: Anxiety, panic attack, wants to speak with mental health HISTORY OF PRESENT ILLNESS: This is a 27-year-old male presents emergency room by private vehicle for anxiety and panic attack. Patient states he has not slept well for the past 5 days. Feeling very anxious. Feeling very panicky. States racing thoughts. Also feels depressed. He requested to speak to mental health. He denies homicidal or suicidal ideation. Denies wanting to harm self or anybody else. He is not on any medications. He reports to me over the past 8 months he has had 12-15 episodes panic attacks for resulting him coming into the emergency room. Past Medical History: Anxiety/panic attacks. Past Surgical History: Abdominal surgery, history of nephrectomy, kidney mass removal, subsequent hemorrhagic shock Social History: Occasional alcohol use. Denies drugs or tobacco. Family History: Noncontributory ROS REVIEW OF SYSTEMS: 10 Systems were reviewed and negative with the exception of the elements mentioned in the history of present illness. Exam Constitutional anxious, triage nursing summary reviewed, vital signs reviewed, awake/alert. Eyes normal conjunctivae and sclera, EOMI, PERRLA. HENT normal inspection, atraumatic, moist mucus membranes, no epistaxis, neck supple/ no meningismus, no raccoon eyes. Respiratory clear to auscultation bilaterally, normal breath sounds, no respiratory distress, no wheezing. Cardiovascular rate normal, regular rhythm, no murmur, no edema, distal pulses normal. Gastrointestinal soft, non-tender, no rebound, no guarding, normal bowel sounds, no distension, no pulsatile mass. Genitourinary no CVA tenderness. Musculoskeletal no midline vertebral tenderness, full range of motion, no calf swelling, no tenderness of extremities, no meningismus, good pulses, neurovascularly intact. Skin pink, warm, & dry, no rash, skin atraumatic. Neurologic awake, alert and oriented x 3, AAOx3, moves all 4 extremities equally, motor intact, sensory intact, CN II-XII intact, normal cerebellar, normal vision, normal speech. Psychiatric anxious Heme/Lymph/Immune no lymphadenopathy. Differential Diagnosis: Includes but is not limited to in a particular order acute anxiety, panic attack, underlying depression, mood disorder, bipolar disorder Medical Decision Making: Plan for this patient blood draw for medical clearance. 1 mg p.o. Ativan for anxiety, patient would like to speak voluntary speak with them mental health. Re-evaluation: 0600: Patient need to speak with mental health voluntary. EKG interpretation by me on record in [employer] system. Impression time of EKG 6:18 a.m., sinus arrhythmia, rate of 63, no acute ischemia no ST elevation or ST depression. Unchanged from previous EKG. Patient is voluntary would like to speak to mental health. (Tashi Sevilla) Constitutional: Initial Vital Signs Temperature (C) 37.0 C 04/17/18 05:31 Heart Rate 77 04/17/18 05:31 Respiratory Rate 16 04/17/18 05:31 Blood Pressure 158/103 H 04/17/18 05:31 O2 Sat (%) 95 04/17/18 05:31 O2 Delivery Mode Room Air Allergies/Adverse Reactions: No Known Allergies Allergy (Verified 04/17/18 05:34) Home Medications: Medication Instructions Recorded Albuterol [Proventil Inhaler HFA 1 - 2 puffs IH Q4H PRN 02/19/17 (*)] Medical Decision Making Other Provider: I assumed care of this patient from Dr. Tashi Sevilla at 7:15 a.m.. Patient presented with anxiety and history of multiple panic attacks. He would like to speak to Mental Health. Laboratory evaluation was remarkable only for marijuana urine tox screen. Patient is voluntary. Patient seen by (Rosamaria). Recommend discharge with follow up at [facility]. Patient and family in agreement. See eval notes. (Laura Daley) - Data Points Laboratory Results: Laboratory Results 04/17/18 06:13 04/17/18 06:13 04/17/18 06:13 Neut % (Auto) 51.8 % % (39.3-74.2) Lymph % (Auto) 29.6 % % (15.0-45.0) [place] % (Auto) 9.6 % % (4.5-13.0) Eos % (Auto) 7.7 % H % (0.6-7.6) Baso % (Auto) 0.6 % % (0.3-1.7) Nucleat RBC Rel Count 0.0 % % (0.0-0.2) Absolute Neuts (auto) 4.52 10^3/uL 10^3/uL (1.70-6.50) Absolute Lymphs (auto) 2.58 10^3/uL 10^3/uL (1.00-3.00) Absolute Monos (auto) 0.84 10^3/uL H 10^3/uL (0.30-0.80) Absolute Eos (auto) 0.67 10^3/uL H 10^3/uL (0.03-0.40) Absolute Basos (auto) 0.05 10^3/uL 10^3/uL (0.02-0.10) Absolute Nucleated RBC 0.00 10^3/uL 10^3/uL (0-0.01) Immature Gran % 0.7 % % (0.0-1.1) Immature Gran # 0.06 10^3/uL 10^3/uL (0.00-0.10) RBC/WBC/PLT Morphology TNP Platelet Estimate TNP Medications Given: Discontinued Medications Lorazepam (Ativan Injection) 1 mg IVP EDNOW ONE Stop: 04/17/18 05:57 Last Admin: 04/17/18 06:30 Dose: 1 mg Departure - Departure Disposition: Home, Routine, Self-Care Clinical Impression: Anxiety, Panic attack Condition: Good Instructions: [facility], Anxiety (ED), Panic Attack (ED) Additional Instructions: Please follow up as directed by mental health. Return if worse. Referrals: DAHLIA SOLITARIO [Other] - As per Instructions
[2018-04-17] MEDS ORDERED: LORazepam 2 MG/ML INJ IVP ONE (05:56)
[2018-04-17 06:23] LABS: PLATELET COUNT 234 10^3/uL (150-400)
[2018-04-17 16:29] VITALS: BP 159/91
--- NOTE | 2018-04-17 21:04 | ASMTTLCEVL ---
TLC Evaluation - Basic Information Evaluation Start Date and 04/17/2018 03:00 PM Time Hospital Status Answers: Voluntary Patient statement Notes: "I need sleep". Narrative Notes: Pt is a 27 y/o male arriving at the ED with his mother, following a panic attack. Per ED physician, pt reported having had a panic attack and not having slept in 5 days. He says he is feeling very anxious and very panicky. States raing thoughts. Also feels depressed. He reports to have had 12-15 panic attacks over the last 8 months. He asked to speak to mental health. He was given 1mg of Ativan IVP. Clinician spoke to pt alone. When asked what he would like to leave the hospital with, "I'd like to sleep". Pt's affect flat, mood depressed. He responds to questions in a linear manner and without pressured speech. He does ramble and frequently needs to be redirected. His voice is flat and without expression. Pt states that he had began having a panic attack at 4am this morning. He woke his sister and parents. His sister sat with him in bed and rubbed his back. His father recommended that he come to the ED for mental health. Pt says he practiced using his breadth to calm down and after approx 40 minutes saw the attack luz elena. Pt describes having had depression in high school, mostly related to his poor self image as he was quite overweight. That sadness retreated reemerging sometime over the past year. He describes having been anxious for the last few years and then tells this clinician he began having panic attacks about 15 months ago. He had been in a 2-3 yr relationship with a woman, they were living together, until this past July when she "broke up" with him. It was during this same time that he took a fall and while in the hospital had a large cyst on his kidney discovered. He spent his recovery, 2 months, in his parents home. He then returned to live with his girlfriend who once again broke-up with him in November. He moved out and back with his parents, but up until this past week they were seeing each other every couple weeks and had continued being intimate with each other. Her reasons for breaking up included stress related to his panic attacks, his emotional dependence on her (he told her she was the only thing that brought him happiness) and his being unemployed. Several days ago she made the separation final. Pt states he has had 5 panic attacks this week and hasn't slept much in 5 days. Pt states that he has been unemployed for over a year and needs to be more serious about looking. He uses marijuana daily, throughout the day. He was spending time outdoors and lifting weights, but now finds himself increasingly house bound. He denies any wish to , but does have occasional thoughts of dying at which time he may think that then his girlfriend would understand the pain he was in. He has never had intent or a plan and has no current SI. He was given Celexa for his anxiety, took it for 2 months and then stopped it when he didn't see any changes. "I'd rather not use western medicines". He expresses no wish to stop using marijuana, "I feel less sad when I use it". He saw a therapist for the first time this past week. This was a male therapist in [place]; "I'd rather see a female and in [place]". When asked what he would like to leave the hospital with, "I'd like to sleep". When he was told, at the end of the assessment, that he would not receive sleeping medicine to take home with him he was visibly disappointed, avoided eye-contact and responded mono-syllabically to questions. CM later met with his mother and sister. MOP and SOP shared a similar account of the pt's recent life. Diagnosis History Notes: Anxiety Prior suicide attempts Notes: None Prior hospitalizations Notes: None Treatment Responses Notes: Believed celexa was not helpful. History of violence Notes: Denies. Therapist: [facility] Medications (name, dosage, route, freq uency) Notes: Albuterol 1-2 puffs Allergies/Reaction Notes: None known Sleep Notes: Recently very little. Normally 6 hrs. Appetite Notes: Normal Medical/Surgical history Notes: Abdominal surgery, hx of nephrectomy, kidney mass removal, subsequent hemmorrhagic shock. Substance use history (frequency, intensity, his tory, duration) Notes: Daily marijuana use, multiple times throughout day Alcohol - 1-2 drinks approx 4-5 days a week. Family composition Notes: Mother, father, 2 sisters. Need for family Answers: Yes participation in patient's care Family psychiatric/substance abuse history Notes: Pt states both parents drink, "dad is closer to an alcoholic". Dad was unemployed for periods of time. His father was on an SSRI, but was taken off of it due to suicidality. Both of his sisters took SSRIs in past. Mother and one of his sisters have had panic attacks. Developmental history Notes: Pt reports being veru overweight in high school. He also reports missing multiple classes, though going to school to "hang out with friends and get high". Pt said he was likable, but had more associations than friends. Denies ever being bullied. Abuse concerns Answers: None Marital status/children Notes: Denies. Living situation Notes: Lives in his parents home along with his grandmother. Sexual history/orientation Notes: Heterosexual Peer support/family strengths Notes: Supportive family. One close friend who also uses marijuana frequently. Education level/history Notes: High school graduate. 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 Notes: Denies. Legal Notes: Denies. Mormonism/Spiritual Notes: Unknown. Leisure Notes: Watching sports. "Don't enjoy much right now". Collateral Notes: Mother and sister (Radha). Patient's strengths Answers: Athletic (Please select at least TWO strengths): Supportive Family TLC Evaluation - Mental Status Exam Appearance: Answers: Appropriate Unclean Unkempt Disheveled Eye Contact: Answers: Avoiding Good/Direct Mood: Answers: Sad Affect: Answers: Flat Behavior: Answers: Appropriate Cooperative Resistive to Care Talkative Speech: Answers: Relevant Logical Clear Coherent Rambling Thought Process: Answers: Organized Oriented Alert Insight: Answers: Poor Judgement: Answers: Poor Depression Answers: Diminished Interest Signs/Symptoms: Diminished Pleasure Flat Affect Psychomotor Retardation Sad Mood Withdrawn Worthlessness Anxiety Signs/Symptoms Answers: Generalized Anxiety Panic Attacks Hallucinations: Answers: None Current Stage of Change Answers: Precontemplation Pt reported to have Answers: Yes suicidal/self-injuring ideation/behavior? Pt reported to be making Answers: No suicidal/self-injuring threats? Pt reported to have Answers: No aggression/assault ideation/behavior? Pt reported to be making Answers: No aggression/assault threats? Pt exhibits inability to Answers: No care for self/grave disability? Ideation/behavior is Answers: No chronic? Patient has a specific Answers: No plan? Ideation involves Answers: No serious/lethal intent? Ideation has Answers: No delusional/hallucinatory content? History of Answers: Yes suicidal/self-injuring ideation, behavior, or threats? History of Answers: No aggressive/assaultive ideation, behavior, or threats? History of serious Answers: No physical harm to self/others while in treatment setting? TLC Evaluation - Suicide/Homicide Risk Suicide Risk Factors: Answers: Anxiety/Panic, Severe Flat Affect Global Insomnia Inadequate Social Support Lack of Social Support Problems with Partner Single Homicide/violence risk Answers: None factors: Current Suicidal Answers: No Ideation? Current Suicidal Ideation Answers: No in the Past 48 Hours? Current Suicidal Ideation Answers: No in the Past Month? Current Suicidal Answers: No Ideation, Worst Ever? Suicide Internal Answers: Absence of Psychosis Protective Factors: Suicide External Answers: Other Notes: family support Protective Factors: Ranking of patient's Answers: Low suicidal risk: Ranking of patient's Answers: Low homicidal risk: TLC Evaluation - Wrap-up BDI Question #2 Score: 2 BDI Question #9 Score: 1 BSS Total Score: 0 AXIS I Diagnosis (include DSM-V and ICD-10 codes), must also be entered in [employer], which is the source of truth. Notes: Panic Disorder 300.01 (F41.0) Persistent Depressive Disorder (Dysthymia) 300.4 (F34.1) Cannabis Use Disorder, severe 304.30 (F12.20) In consultation with [facility] ED physician, Laura Daley MD it was concurred that Pt does not appear to meet 27-65 criteria requiring psychiatric hospitalization as Pt does not appear to be an imminent risk of harm to self/others/due to grave disability due to a mental illness condition. Evaluation End Date and 04/17/2018 06:30 PM Time (HH:CHITO): Date Signed: 04/17/2018 06:39 PM Electronically Signed By:Rosamaria Nick
--- NOTE | 2018-04-18 11:40 | ASMTTCLDSP ---
TLC Discharge Disposition Disposition: Answers: Discharge If Answers: Yes DISCHARGED: Patient/family given suicide hotline info & SAMHSA brochure? Disposition Notes: Notes: D/C Recommendations: Pt to contact [place] first thing Thursday morning and request same day appt with PCP to request a medication evaluation for medicines that can help with both sleep and panic attacks. Pt to either rescedule an appt with [place] therapist he saw in [place] or make a new first appt with [place] therapist at the [facility], which is closer to his home. If either of these do not work out Pt given information on [facility] which does both mental health and substance abuse treatment and a private therapist who works on a sliding scale. MOP to arrange for herself, pt's father and perhaps pt's sister to see a therapist who can help them to support pt's need to move forward with his life. MOP receptive to all recommendations. Pt disappointed that he was not given a medication to help him sleep tonight. Discharge Concerns/Recommendations: Notes: In consultation with [facility] ED physician,Laura Daley MD it was concurred that Pt does not appear to meet 27-65 criteria requiring psychiatric hospitalization as Pt does not appear to be an imminent risk of harm to self/others/due to grave disability due to a mental illness condition. Date Signed: 04/18/2018 11:39 AM Electronically Signed By:Rosamaria Nick
--- NOTE | 2018-04-19 15:21 | CPEKG ---
Test Reason : OPEN Blood Pressure : / mmHG Vent. Rate : 063 BPM Atrial Rate : 067 BPM P-R Int : 175 ms QRS Dur : 094 ms QT Int : 386 ms P-R-T Axes : 051 007 036 degrees QTc Int : [address] elev, probable normal early repol pattern Confirmed by Trinidad Martins ([id number]) on 04/19/2018 3:21:19 PM Referred By: Confirmed By:Trinidad Martins
== END 2018-04-17 16:27 | disposition home or self-care (01) ==
DX: F41.0 Panic disorder [episodic paroxysmal anxiety] (principal)
CPT/HCPCS: 80305; 96374; G0480; J2060

== ENCOUNTER 2018-04-30 16:34 | Emergency (ER) | payer OTHER ==
[2018-04-30 17:12] VITALS: BP 154/80
--- NOTE | 2018-04-30 17:28 | EDPHY ---
H & P Time Seen by Provider: 04/30/18 17:10 HPI/ROS: HPI Drop brick on toe. 27-year-old male by private vehicle. This patient dropped a brick on the base of his dorsal left big toe. He presents for evaluation of this. He denies any other complaint or injury. ROS: Constitutional: No fever, no chills. No weakness. Musculoskeletal: As above. Skin: No lacerations. Abrasion to the affected area. Neurological: No focal weakness or altered sensation. Past medical history: Anxiety, nephrectomy, asthma. Social history: Nonsmoker. No alcohol. Here with his mother. Physical Exam: General Appearance: Alert, no distress. This patient is responding to questions appropriately and in full sentences. This patient appears well- hydrated and well-nourished. Eyes: Pupils equal and round no pallor or injection. No lid edema, erythema or injection. Left foot exam: Significant for tenderness and ecchymosis over the dorsal aspect of the distal 1st metatarsal into the metatarsal phalangeal joint area. No bony deformity or step-off noted over this area. There is a superficial abrasion associated as well. No suturable laceration. The left big toe and left foot are neurovascularly intact. Neurological: Motor sensory function is grossly intact. Cranial nerves are normal. Skin: Warm and dry, no rashes. Extremities are symmetrical. All joints range without pain or impingement except noted. Psychiatric: No agitation. No depression. Database: EKG: Imaging: Left foot and big toe x-ray series: Negative for fracture, subluxation, dislocation. Interpreted by me. Procedures: Emergency department course: Triage vital signs reviewed. He is moderately hypertensive. Patient sent for x -rays of left foot and big toe. 5:30 p.m., the patient was re-evaluated. Resting comfortably at this time. Results of x-rays discussed with him. He has some loose fitting open slippers. I feel this is adequate for foot wear. He does feel comfortable going home. He is able to bear weight on the foot. Follow-up and return to emergency department precautions reviewed with him. All of his questions were answered. He was discharged from the emergency department in good condition. Differential Diagnosis: The differential diagnosis on this patient includes but is not limited to left big toe contusion. Fracture, subluxation, dislocation of the left foot unlikely. This represents a partial list of diagnoses considered. These considerations are based on history, physical exam, past history, reassessment and diagnostic testing. Smoking Status: Former smoker Constitutional: Initial Vital Signs Temperature (C) 36.9 C 04/30/18 16:43 Heart Rate 92 04/30/18 16:43 Respiratory Rate 16 04/30/18 16:43 Blood Pressure 154/80 H 04/30/18 16:43 O2 Sat (%) 96 04/30/18 16:43 O2 Delivery Mode Room Air Allergies/Adverse Reactions: No Known Allergies Allergy (Verified 04/30/18 16:51) Home Medications: Medication Instructions Recorded Albuterol [Proventil Inhaler HFA 1 - 2 puffs IH Q4H PRN 02/19/17 (*)] Departure - Departure Disposition: Home, Routine, Self-Care Clinical Impression: Contusion of left foot Condition: Good Instructions: Contusion in Adults (ED) Additional Instructions: Read and follow provided instructions. Weightbear on left foot as tolerated. Follow-up with your primary care physician on Thursday or Thursday of next week for re-evaluation as needed. Ibuprofen dosin mg every 6 hours with meals for the next 3 days only. Take only as needed for pain. Return to the emergency department for worsening pain, discoloration or other serious concerns.
== END 2018-04-30 17:35 | disposition home or self-care (01) ==
LOC: CED 16:34
DX: S90.112A Contusion of left great toe without damage to nail, initial encounter (principal); W20.8XXA Other cause of strike by thrown, projected or falling object, initial encounter; Y92.019 Unspecified place in single-family (private) house as the place of occurrence of the external cause
CPT/HCPCS: 73630-PO